=== PATIENT | female | born 1985 | race American Indian/Alaskan Native ===

== ENCOUNTER 2016-12-17 11:55 | Inpatient (IN) | payer MEDICAID, OTHER ==
[2016-12-17] MEDS ORDERED: NACL 0.9% 1000 ML 1,000 ML IV ONE ×2 (13:50→21:38)
[2016-12-17] MEDS ORDERED: TYLENOL PO ONE (13:57)
[2016-12-17 14:36] LABS: Basophils % (Auto) 0.3 % (0.0-1.8); Hemoglobin 12.8 gm/dl (10.1-14.3); Mean Corpuscular HGB Conc 32 % (30-34); Mean Corpuscular Hemoglobin 28 pg (28-32); Mean Corpuscular Volume 86 fl (79-97); Platelet Count 320 K/mm3 (140-440); Red Blood Count 4.66 M/mm3 (3.65-5.03); Red Cell Distribution Width 14.6 % (13.2-15.2); White Blood Count 12.7 K/mm3 (4.5-11.0)
[2016-12-17 14:44] LABS: INR 1.18 (0.87-1.13)
--- NOTE | 2016-12-17 14:44 | XRay Report ---
Single view chest: History: Possible sepsis. Findings: Normal cardiomediastinal silhouette. Trachea is midline. No consolidation, pneumothorax or pleural effusion. Impression: No acute cardiopulmonary findings.
[2016-12-17 14:45] LABS: Bilirubin,Urine NEG (Negative); Blood,Urine NEG (Negative); Ketones,Urine 20 mg/dL (Negative); Leukocyte Esterase,Urine NEG (Negative); Mucus,Urine 1+ /HPF; Nitrite,Urine NEG (Negative); Protein,Urine <15 mg/dL mg/dL (Negative); Urobilinogen,Urine < 2.0 mg/dL (<2.0)
[2016-12-17 14:54] LABS: Alanine Aminotransferase 29 units/L (7-56); Albumin 3.9 g/dL (3.9-5); Alkaline Phosphatase 95 units/L (35-129); Anion Gap 21 mmol/L; Bilirubin,Total 0.6 mg/dL (0.1-1.2); Blood Urea Nitrogen 10 mg/dL (7-17); Carbon Dioxide 21 mmol/L (22-30); Chloride 96.2 mmol/L (98-107); Glucose 83 mg/dL (65-100); Potassium 3.6 mmol/L (3.6-5.0); Sodium 135 mmol/L (137-145)
[2016-12-17] MEDS ORDERED: SUBLIMAZE IV ONE (16:44)
[2016-12-17] MEDS ORDERED: ZOFRAN IV ONE (16:44)
--- NOTE | 2016-12-17 16:52 | Emergency Department Report ---
HPI - General Chief Complaint: Fever Time Seen by Provider: 12/17/16 16:33 - HPI HPI: Room 10 The patient is a 31-year-old female presenting with a chief complaint of headache and fever. The patient states for the past 4 days she has "felt so bad." The patient explained she's had frontal headache, retro-orbital pain, neck pain and back pain the past 4 days. Patient states she's had a fever measured to 105F at home. Patient describes the headache as throbbing in nature and admits to photophobia in addition to nausea vomiting. The patient is 11[birth year]26[birth year]2016 states the baby is breast-fed and bottle-fed. Location: [see above] Duration: Days Quality: Throbbing Severity: 08/09 Modifying factors: [see above] Context: [see above] Mode of transportation: [not driving] ED Past Medical Hx - Past Medical History Hx Diabetes: Yes (GESTATIONAL) - Surgical History Past Surgical History?: No Additional Surgical History: C SECTIONS X 2 / 2 ACL REPAIRS - Family History Family history: no significant - Social History Smoking Status: Never Smoker Substance Use Type: None - Medications Home Medications: Home Medications Medication Instructions Recorded Confirmed Last Taken Type Motrin 600 MG tab 1 tab PO Q6H PRN 12/17/16 12/17/16 1 Day Ago History Percocet 5/325 mg 1 tab PO Q6H 12/17/16 12/17/16 1 Day Ago History ED Review of Systems ROS: Stated complaint: FEVER/ 11/26/ Other details as noted in HPI Comment: All other systems reviewed and negative Constitutional: fever Eyes: denies: eye pain, eye discharge, vision change ENT: denies: ear pain, throat pain Respiratory: denies: cough, shortness of breath, wheezing Cardiovascular: denies: chest pain, palpitations Endocrine: no symptoms reported Gastrointestinal: nausea, vomiting Musculoskeletal: back pain Skin: denies: rash, lesions Neurological: headache Psychiatric: denies: anxiety, depression Hematological/Lymphatic: denies: easy bleeding, easy bruising Physical Exam - Physical Exam Vital Signs: Vital Signs 12/17/16 12/17/16 12:11 13:58 Temperature 101.6 F H Pulse Rate 110 H Respiratory 16 20 Rate Blood Pressure 135/93 O2 Sat by Pulse 108 H Oximetry Physical Exam: GENERAL: The patient is well-developed well-nourished female lying on stretcher in darkened room not appearing to be in acute distress. [] HEENT: Normocephalic. Atraumatic. Extraocular motions are intact. Patient has moist mucous membranes. NECK: Supple. The patient complains of neck pain. There is no adenopathy noted. CHEST/LUNGS: Clear to auscultation. There is no respiratory distress noted. HEART/CARDIOVASCULAR: Regular. There is tachycardia. There is no gallop rub or murmur. ABDOMEN: Abdomen is soft, nontender. Patient has normal bowel sounds. There is no abdominal distention. SKIN: There is no rash. There is no edema. There is no diaphoresis. NEURO: The patient is awake, alert, and oriented. The patient is cooperative. The patient has no focal neurologic deficits. The patient has normal speech. Cranial nerves II through XII grossly intact, no drift MUSCULOSKELETAL: There is no evidence of acute injury. ED Course Vital Signs 12/17/16 12/17/16 12:11 13:58 Temperature 101.6 F H Pulse Rate 110 H Respiratory 16 20 Rate Blood Pressure 135/93 O2 Sat by Pulse 108 H Oximetry - Lumbar Puncture Consent Obtained: verbal consent, written consent Time Out Performed: Yes Indication for Procedure: headache, fever work up Patient Position: left lateral decubitus Skin Prep: Povidone-Iodine 1% Local Anesthetic Used: Lidocaine 1% Amount of anesthesia used (mls): 5 Spinal Needle Gauge: 20G Spinal Needle Length: 1.5in Interspace Used: L4-L5 Opening Pressure (cmH20): 0 (opening pressure attempted but secondary to poor CSF flow it was abandoned to assure CSF was obtained for analysis) Fluid Initially Obtained: clear, cloudy Complications: none Patient Tolerated Procedure: well ED Medical Decision Making - Lab Data Result diagrams: 12/17/16 14:13 12/17/16 14:13 Laboratory Tests 12/17/16 12/17/16 12/17/16 14:13 14:13 14:13 WBC 12.7 H RBC 4.66 Hgb 12.8 Hct 40.0 MCV 86 MCH 28 MCHC 32 RDW 14.6 Plt Count 320 Lymph % (Auto) 8.2 L [place] % (Auto) 5.2 Eos % (Auto) 0.0 Baso % (Auto) 0.3 Lymph # 1.0 L [place] # 0.7 Eos # 0.0 Baso # 0.0 Seg Neutrophils % 86.3 H Seg Neutrophils # 11.0 H PT 14.9 INR 1.18 H VBG pH Carbon Dioxide 21 L BUN 10 Creatinine 0.8 Estimated GFR > 60 BUN/Creatinine Ratio 12.50 Glucose 83 Lactic Acid Calcium 9.0 Total Bilirubin 0.6 AST 29 ALT 29 Alkaline Phosphatase 95 Total Protein 8.0 Albumin 3.9 Albumin/Globulin Ratio 1.0 Urine Color Urine Turbidity Urine pH Ur Specific [place] Urine Protein Urine Glucose (UA) Urine Ketones Urine Blood Urine Nitrite Urine Bilirubin Urine Urobilinogen Ur Leukocyte Esterase Urine WBC (Auto) Urine RBC (Auto) U Epithel Cells (Auto) Urine Mucus CSF Glucose CSF Total Protein 12/17/16 12/17/16 12/17/16 14:13 14:13 14:35 WBC RBC Hgb Hct MCV MCH MCHC RDW Plt Count Lymph % (Auto) [place] % (Auto) Eos % (Auto) Baso % (Auto) Lymph # [place] # Eos # Baso # Seg Neutrophils % Seg Neutrophils # PT INR VBG pH 7.399 Carbon Dioxide BUN Creatinine Estimated GFR BUN/Creatinine Ratio Glucose Lactic Acid 1.7 Calcium Total Bilirubin AST ALT Alkaline Phosphatase Total Protein Albumin Albumin/Globulin Ratio Urine Color Yellow Urine Turbidity Clear Urine pH 5.0 Ur Specific [place] 1.017 Urine Protein <15 mg/dl Urine Glucose (UA) Neg Urine Ketones 20 Urine Blood Neg Urine Nitrite Neg Urine Bilirubin Neg Urine Urobilinogen < 2.0 Ur Leukocyte Esterase Neg Urine WBC (Auto) 3.0 Urine RBC (Auto) 4.0 U Epithel Cells (Auto) 1.0 Urine Mucus 1+ CSF Glucose CSF Total Protein 12/17/16 17:49 WBC RBC Hgb Hct MCV MCH MCHC RDW Plt Count Lymph % (Auto) [place] % (Auto) Eos % (Auto) Baso % (Auto) Lymph # [place] # Eos # Baso # Seg Neutrophils % Seg Neutrophils # PT INR VBG pH Carbon Dioxide BUN Creatinine Estimated GFR BUN/Creatinine Ratio Glucose Lactic Acid Calcium Total Bilirubin AST ALT Alkaline Phosphatase Total Protein Albumin Albumin/Globulin Ratio Urine Color Urine Turbidity Urine pH Ur Specific [place] Urine Protein Urine Glucose (UA) Urine Ketones Urine Blood Urine Nitrite Urine Bilirubin Urine Urobilinogen Ur Leukocyte Esterase Urine WBC (Auto) Urine RBC (Auto) U Epithel Cells (Auto) Urine Mucus CSF Glucose 49 CSF Total Protein 69 Laboratory Tests 12/17/16 12/17/16 12/17/16 14:13 14:13 14:13 WBC 12.7 H RBC 4.66 Hgb 12.8 Hct 40.0 MCV 86 MCH 28 MCHC 32 RDW 14.6 Plt Count 320 Lymph % (Auto) 8.2 L [place] % (Auto) 5.2 Eos % (Auto) 0.0 Baso % (Auto) 0.3 Lymph # 1.0 L [place] # 0.7 Eos # 0.0 Baso # 0.0 Seg Neutrophils % 86.3 H Seg Neutrophils # 11.0 H PT 14.9 INR 1.18 H VBG pH Carbon Dioxide 21 L BUN 10 Creatinine 0.8 Estimated GFR > 60 BUN/Creatinine Ratio 12.50 Glucose 83 Lactic Acid Calcium 9.0 Total Bilirubin 0.6 AST 29 ALT 29 Alkaline Phosphatase 95 Total Protein 8.0 Albumin 3.9 Albumin/Globulin Ratio 1.0 Urine Color Urine Turbidity Urine pH Ur Specific [place] Urine Protein Urine Glucose (UA) Urine Ketones Urine Blood Urine Nitrite Urine Bilirubin Urine Urobilinogen Ur Leukocyte Esterase Urine WBC (Auto) Urine RBC (Auto) U Epithel Cells (Auto) Urine Mucus CSF Appearance CSF Color CSF WBC CSF RBC CSF Glucose CSF Total Protein 12/17/16 12/17/16 12/17/16 14:13 14:13 14:35 WBC RBC Hgb Hct MCV MCH MCHC RDW Plt Count Lymph % (Auto) [place] % (Auto) Eos % (Auto) Baso % (Auto) Lymph # [place] # Eos # Baso # Seg Neutrophils % Seg Neutrophils # PT INR VBG pH 7.399 Carbon Dioxide BUN Creatinine Estimated GFR BUN/Creatinine Ratio Glucose Lactic Acid 1.7 Calcium Total Bilirubin AST ALT Alkaline Phosphatase Total Protein Albumin Albumin/Globulin Ratio Urine Color Yellow Urine Turbidity Clear Urine pH 5.0 Ur Specific [place] 1.017 Urine Protein <15 mg/dl Urine Glucose (UA) Neg Urine Ketones 20 Urine Blood Neg Urine Nitrite Neg Urine Bilirubin Neg Urine Urobilinogen < 2.0 Ur Leukocyte Esterase Neg Urine WBC (Auto) 3.0 Urine RBC (Auto) 4.0 U Epithel Cells (Auto) 1.0 Urine Mucus 1+ CSF Appearance CSF Color CSF WBC CSF RBC CSF Glucose CSF Total Protein 12/17/16 12/17/16 17:49 17:49 WBC RBC Hgb Hct MCV MCH MCHC RDW Plt Count Lymph % (Auto) [place] % (Auto) Eos % (Auto) Baso % (Auto) Lymph # [place] # Eos # Baso # Seg Neutrophils % Seg Neutrophils # PT INR VBG pH Carbon Dioxide BUN Creatinine Estimated GFR BUN/Creatinine Ratio Glucose Lactic Acid Calcium Total Bilirubin AST ALT Alkaline Phosphatase Total Protein Albumin Albumin/Globulin Ratio Urine Color Urine Turbidity Urine pH Ur Specific [place] Urine Protein Urine Glucose (UA) Urine Ketones Urine Blood Urine Nitrite Urine Bilirubin Urine Urobilinogen Ur Leukocyte Esterase Urine WBC (Auto) Urine RBC (Auto) U Epithel Cells (Auto) Urine Mucus CSF Appearance Clear Clear CSF Color Colorless Colorless CSF WBC 186 205 CSF RBC 6 3 CSF Glucose 49 CSF Total Protein 69 Sodium 135, potassium 3.6, chloride 96.2 - Differential Diagnosis meningitis, encephalitis, intracranial abscess Critical care attestation.: If time is entered above; I have spent that time in minutes in the direct care of this critically ill patient, excluding procedure time. ED Disposition Clinical Impression: Meningitis, Acute headache, Fever Disposition: OP ADMITTED IP TO THIS HOSP Is pt being admited?: Yes Does the pt Need Aspirin: No Condition: Serious Referrals: PRIMARY CARE, [Primary Care Provider] - 3-5 Days Time of Disposition: 19:54 (hospitalist notified)
--- NOTE | 2016-12-17 17:13 | Cat Scan Report ---
FINAL REPORT PROCEDURE: CT HEAD/BRAIN WO CON TECHNIQUE: Computerized tomography of the head was performed without contrast material. HISTORY: headache, fever COMPARISON: No prior studies are available for comparison. FINDINGS: The visualized portions of the paranasal sinuses are clear. Mastoid air cells are clear. There is no calvarial fracture. There is no hydrocephalus. No acute intracranial hemorrhage or mass effect is seen. There is no evidence of acute CVA. IMPRESSION: No abnormalities are seen.
[2016-12-17] MEDS ORDERED: ROCEPHIN/NS 2 GM/100 ML 2 GM/100 ML BAG IV ONE (17:44)
[2016-12-17] MEDS ORDERED: DILAUDID IV ONE (17:44)
--- NOTE | 2016-12-17 18:18 | Admit Criteria Form ---
Admission Criteria Documentation: MENINGITIS, BACTERIAL Clinical Indications for Admission to Inpatient Care (Place 'X' for any and all applicable criteria): Admission is indicated for ANY ONE of the following (1)(2)(3)(4)(5): [X]I. Suspected or proven bacterial meningitis Extended stay beyond goal length of stay may be needed for(1)(10): [ ]a) Persistent fever [ ]b) Significant neurologic complications [ ]c) Hemodynamic instability [ ]d) Significant fluid or electrolyte imbalance [ ]e) Respiratory failure [ ]f) Disseminated intravascular coagulation [ ]g) Older patients(65 years older) The original [employer] content created by [employer] has been revised. The portions of the content which have been revised are identified through the use of italic text or in bold, and [facility] has neither reviewed nor approved the modified material. All other unmodified content is copyright [employer]. Please see references footnoted in the original [email or web address] edition 2016 Admission Criteria Met: Yes
[2016-12-17 18:52] LABS: Glucose,CSF 49 mg/dL
[2016-12-17] MEDS ORDERED: MOTRIN ONE (19:29)
[2016-12-17] MEDS ORDERED: MOTRIN PO ONE (19:31)
[2016-12-17 19:45] LABS: Appearance,CSF Clear; White Blood Cell,CSF 186 /mm3 (1-10)
[2016-12-17 19:46] LABS: White Blood Cell,CSF 205 /mm3 (1-10)
[2016-12-17 19:56] LABS: Basophils CSF 0 %
[2016-12-17 20:04] LABS: Basophils CSF 0 %; CSF Diff Status Complete
[2016-12-17 20:05] LABS: CSF Diff Status Complete
[2016-12-17] MEDS ORDERED: MILK OF MAGNESIA PO PRN (20:40)
[2016-12-17] MEDS ORDERED: DULCOLAX PR PRN (20:40)
--- NOTE | 2016-12-17 20:51 | History and Physical Report ---
History of Present Illness Date of examination: 12/17/16 Date of admission: 12/17/2016 Chief complaint: Headache fever History of present illness: Patient 31-year-old female presented with a 4 day history of headache fever associated with photophobia and nausea and vomiting. Patient symptoms were aggravated by movement and light and loud noise. No alleviating symptoms. Patient relates pain is being 10 out of 10. Unable to sleep because of pain. Nausea vomiting because of pain. Patient gives history of recent having a C- section several weeks ago and was breast-feeding. Symptoms were acute 4 days ago and she thought we'll go away however they progressed and became so severe she had to come to the ER. Upon presentation the ER patient found to be febrile. Patient's temp is going as high as 105. CT scan initially was negative. Workup for meningitis showed confirmation of meningitis with cerebrospinal fluid. At present patient Past History Past Medical History: denies: atrial fib, arrhythmia, arthritis, COPD, GERD, hepatitis, hyperthyroidism, pulmonary embolism, seizures, stroke Past Surgical History: . denies: abd. aortic aneurysm repair, valve replacement, mastectomy, total hip replacement, total knee replacement Social history: no significant social history, lives with family, full code. denies: smoking, alcohol abuse, prescription drug abuse, IV drug use Family history: no significant family history Medications and Allergies Allergies Allergy/AdvReac Type Severity Reaction Status Date / Time No Known Allergies Allergy Verified 12/17/16 12:14 Home Medications Medication Instructions Recorded Confirmed Last Taken Type Motrin 600 MG tab 1 tab PO Q6H PRN 12/17/16 12/17/16 1 Day Ago History Percocet 5/325 mg 1 tab PO Q6H 12/17/16 12/17/16 1 Day Ago History Active Meds: Active Medications Acetaminophen (Tylenol) 650 mg PO Q4H PRN PRN Reason: Pain MILD(1-3)/Fever >100.5/MATTA Review of Systems Constitutional: fever, chills, sweats, night sweats, anorexia, fatigue, weakness , malaise, no weight loss, no lethargy, no chronic headaches, no poor appetite, no daytime sleepiness, no chronic pain Eyes: left: blurred vision, bilateral: pain, irritation, photophobia Ears, nose, mouth and throat: sinus pressure, neck fullness/pressure, no ear pain, no ear discharge, no decreased hearing, no nose pain, no nasal discharge, no bleeding gums, no mouth pain, no hoarseness, no sore throat, no swelling in mouth, no post-nasal drip, no headache, no vertigo, no pain front of neck, no neck lump Cardiovascular: no chest pain, no orthopnea, no rapid/irregular heart beat, no edema, no syncope, no paroxysmal nocturnal dyspnea, no claudication, no leg edema Respiratory: no cough, no cough with sputum, no excessive sputum, no hemoptysis , no shortness of breath, no wheezing, no pleurisy, no respiratory infections, no home oxygen, no other Gastrointestinal: nausea, vomiting, no diarrhea, no BRBPR, no hematochezia, no early satiety, no heartburn, no excessive gas, no dyspepsia/bloating Genitourinary Female: no dyspareunia, no pelvic pain, no menorrhagia, no dysuria , no urgency, no stress incontinence, no post void dribbling, no vaginal itching , no vaginal discharge, no abnormal vaginal bleeding, no genital sores, no vaginal dryness, no decreased libido Rectal: no incontinence, no bleeding Musculoskeletal: no neck stiffness, no low back pain, no shooting leg pain, no hot joints, no morning stiffness, no myalgias, no atrophy, no limitation of motion, no fractures, no loss of height, no arthritis Integumentary: no redness, no sores, no jaundice, no bullae, no darkening of skin, no acne, no dryness, no change in hair/nails, no brittle nails Neurological: weakness, numbness, no transient paralysis, no paralysis, no parathesias, no tingling, no seizures, no syncope, no vertigo, no headaches, no migraines, no convulsions, no aphasia, no change in speech, no change in mentation, no confusion, no gait dysfunction, no motor disturbance, no double vision, no loss of vision, no hearing difficulties, no burning pain, no paralysis, no spasticity Psychiatric: no anxiety, no memory loss, no change in sleep habits, no insomnia , no hypersomnia, no change in libido, no anhedonia, no difficulties concentrating, no irritability Endocrine: no cold intolerance, no heat intolerance, no polyphagia, no excessive thirst, no polydipsia, no polyuria, no nocturia, no excessive sweating , no weight change, no increase in ring/shoe/hat size, no thyroid mass, no palpatations, no low blood sugars Hematologic/Lymphatic: no lymphedema, no thrombophilia Allergic/Immunologic: no urticaria Exam - Constitutional Vitals: Temp Pulse Resp BP Pulse Ox 102.4 F H 113 H 16 143/91 95 12/17/16 19:37 12/17/16 19:37 12/17/16 19:37 12/17/16 19:37 12/17/16 19:37 General appearance: Present: other (moderate distress) - EENT Eyes: Present: PERRL, EOM intact ENT: hearing intact, clear oral mucosa - Neck Neck: Present: supple, other (is supple but she does have some tenderness with attempts to check her chest with her chin) - Respiratory Respiratory effort: normal Respiratory: bilateral: CTA - Cardiovascular Heart Sounds: Present: S1 & S2. Absent: rub, click - Extremities Extremities: pulses symmetrical, No edema Peripheral Pulses: within normal limits - Abdominal General gastrointestinal: Present: soft, non-tender, non-distended, normal bowel sounds, other (post-gravid) Female genitourinary: Present: deferred - Musculoskeletal Musculoskeletal: gait normal, strength equal bilaterally - Psychiatric Psychiatric: appropriate mood/affect, intact judgment & insight - Neurologic Neurologic: CNII-XII intact, moves all extremities Results - Labs CBC & Chem 7: 12/17/16 14:13 12/17/16 14:13 Labs: Laboratory Last Values WBC 12.7 K/mm3 (4.5-11.0) H 12/17/16 14:13 RBC 4.66 M/mm3 (3.65-5.03) 12/17/16 14:13 Hgb 12.8 gm/dl (10.1-14.3) 12/17/16 14:13 Hct 40.0 % (30.3-42.9) 12/17/16 14:13 MCV 86 fl (79-97) 12/17/16 14:13 MCH 28 pg (28-32) 12/17/16 14:13 MCHC 32 % (30-34) 12/17/16 14:13 RDW 14.6 % (13.2-15.2) 12/17/16 14:13 Plt Count 320 K/mm3 (140-440) 12/17/16 14:13 Lymph % (Auto) 8.2 % (13.4-35.0) L 12/17/16 14:13 [place] % (Auto) 5.2 % (0.0-7.3) 12/17/16 14:13 Eos % (Auto) 0.0 % (0.0-4.3) 12/17/16 14:13 Baso % (Auto) 0.3 % (0.0-1.8) 12/17/16 14:13 Lymph # 1.0 K/mm3 (1.2-5.4) L 12/17/16 14:13 [place] # 0.7 K/mm3 (0.0-0.8) 12/17/16 14:13 Eos # 0.0 K/mm3 (0.0-0.4) 12/17/16 14:13 Baso # 0.0 K/mm3 (0.0-0.1) 12/17/16 14:13 Seg Neutrophils % 86.3 % (40.0-70.0) H 12/17/16 14:13 Seg Neutrophils # 11.0 K/mm3 (1.8-7.7) H 12/17/16 14:13 PT 14.9 Sec. (12.2-14.9) 12/17/16 14:13 INR 1.18 (0.87-1.13) H 12/17/16 14:13 VBG pH 7.399 (7.320-7.420) 12/17/16 14:13 Carbon Dioxide 21 mmol/L (22-30) L 12/17/16 14:13 BUN 10 mg/dL (7-17) 12/17/16 14:13 Creatinine 0.8 mg/dL (0.7-1.2) 12/17/16 14:13 Estimated GFR > 60 ml/min 12/17/16 14:13 BUN/Creatinine Ratio 12.50 % 12/17/16 14:13 Glucose 83 mg/dL (65-100) 12/17/16 14:13 Lactic Acid 1.7 mmol/L (0.7-2.0) 12/17/16 14:13 Calcium 9.0 mg/dL (8.4-10.2) 12/17/16 14:13 Total Bilirubin 0.6 mg/dL (0.1-1.2) 12/17/16 14:13 AST 29 units/L (5-40) 12/17/16 14:13 ALT 29 units/L (7-56) 12/17/16 14:13 Alkaline Phosphatase 95 units/L (35-129) 12/17/16 14:13 Total Protein 8.0 g/dL (6.3-8.2) 12/17/16 14:13 Albumin 3.9 g/dL (3.9-5) 12/17/16 14:13 Albumin/Globulin Ratio 1.0 % 12/17/16 14:13 Urine Color Yellow (Yellow) 12/17/16 14:35 Urine Turbidity Clear (Clear) 12/17/16 14:35 Urine pH 5.0 (5.0-7.0) 12/17/16 14:35 Ur Specific [place] 1.017 (1.003-1.030) 12/17/16 14:35 Urine Protein <15 mg/dl mg/dL (Negative) 12/17/16 14:35 Urine Glucose (UA) Neg mg/dL (Negative) 12/17/16 14:35 Urine Ketones 20 mg/dL (Negative) 12/17/16 14:35 Urine Blood Neg (Negative) 12/17/16 14:35 Urine Nitrite Neg (Negative) 12/17/16 14:35 Urine Bilirubin Neg (Negative) 12/17/16 14:35 Urine Urobilinogen < 2.0 mg/dL (<2.0) 12/17/16 14:35 Ur Leukocyte Esterase Neg (Negative) 12/17/16 14:35 Urine WBC (Auto) 3.0 /HPF (0.0-6.0) 12/17/16 14:35 Urine RBC (Auto) 4.0 /HPF (0.0-6.0) 12/17/16 14:35 U Epithel Cells (Auto) 1.0 /HPF (0-13.0) 12/17/16 14:35 Urine Mucus 1+ /HPF 12/17/16 14:35 CSF Appearance Clear 12/17/16 17:49 CSF Color Colorless 12/17/16 17:49 CSF WBC 186 /mm3 (1-10) 12/17/16 17:49 CSF RBC 6 /mm3 (0-0) 12/17/16 17:49 CSF Seg Neutrophils 92.7 % (0-6) 12/17/16 17:49 CSF Lymphocytes % 7.3 % (40-80) 12/17/16 17:49 CSF Reactive Lymphs 0 % 12/17/16 17:49 CSF Monocytes % 0 % (15-45) 12/17/16 17:49 CSF Eosinophils % 0 % 12/17/16 17:49 CSF Basophils 0 % 12/17/16 17:49 CSF Pathologist Review C 12/17/16 17:49 CSF Glucose 49 mg/dL 12/17/16 17:49 CSF Total Protein 69 mg/dL 12/17/16 17:49 - Imaging and Cardiology Chest x-ray: image reviewed CT Scan - head: image reviewed Assessment and Plan Advance Directives: Yes VTE prophylaxis?: Chemical Plan of care discussed with patient/family: Yes - Patient Problems (1) Acute headache Current Visit: Yes Status: Acute Qualifiers: Headache type: H Intractability: I Plan to address problem: Secondary to meningitis. (2) Fever Current Visit: Yes Status: Acute Qualifiers: Fever type: F Encounter type: initial encounter Qualified Code(s): T88.3XXA - Malignant hyperthermia due to anesthesia, initial encounter Plan to address problem: Most likely secondary to meningitis. We'll treat with Motrin and Tylenol around -the-clock. Last temp was 102. Gave 650 mg a Tylenol versus 800 mg Motrin. The patient does not tolerate by mouth we'll use rectally. (3) Meningitis Current Visit: Yes Status: Acute Plan to address problem: Patient what appears to be bacterial meningitis giving CSF fluid. Patient has 186 and 205 beats wbc's total protein is [address] negative chest x-ray unremarkable as well. Patient has significant photophobia some pain in the back of neck. Significant headache and fever. Will obtain blood cultures treat with 2 g Rocephin. For now ID consult as well. Should take CSF cultures approximately 48 hours. Titrate accordingly we will get that information. Aggressive pain control.
[2016-12-17] MEDS ORDERED: NACL 0.9% 1000 ML 1,000 ML IV SCH (21:00)
[2016-12-17] MEDS: DILAUDID IV PRN (21:26)
[2016-12-17] MEDS: ZOFRAN IV PRN (21:26)
[2016-12-17] MEDS: TYLENOL PO ONE ×2 (21:45→23:00)
[2016-12-17] MEDS: TYLENOL PO PRN (22:17)
[2016-12-17] MEDS: ROCEPHIN/NS 2 GM/100 ML 2 GM/100 ML BAG IV SCH (23:13)
[2016-12-18] MEDS: DILAUDID IV PRN ×5 (02:45→23:02)
[2016-12-18] MEDS: DUONEB 0.5 MG-3 MG/3 ML SOLN IH SCH ×4 (05:04→20:49)
[2016-12-18 06:43] LABS: Basophils % (Auto) 0.1 % (0.0-1.8); Hematocrit 38.2 % (30.3-42.9); Hemoglobin 12.2 gm/dl (10.1-14.3); Mean Corpuscular HGB Conc 32 % (30-34); Mean Corpuscular Hemoglobin 27 pg (28-32); Mean Corpuscular Volume 85 fl (79-97); Platelet Count 263 K/mm3 (140-440); Red Blood Count 4.47 M/mm3 (3.65-5.03); Red Cell Distribution Width 14.8 % (13.2-15.2); White Blood Count 11.4 K/mm3 (4.5-11.0)
[2016-12-18 07:21] LABS: Anion Gap 22 mmol/L; BUN/Creatinine Ratio 15.71; Blood Urea Nitrogen 11 mg/dL (7-17); Calcium 8.2 mg/dL (8.4-10.2); Carbon Dioxide 19 mmol/L (22-30); Chloride 99.8 mmol/L (98-107); Glucose 89 mg/dL (65-100); Potassium 3.9 mmol/L (3.6-5.0); Sodium 137 mmol/L (137-145)
[2016-12-18] MEDS: ZOFRAN IV PRN (08:27)
[2016-12-18] MEDS: TYLENOL PO PRN ×3 (09:00→20:47)
[2016-12-18] MEDS ORDERED: VANCOMYCIN VIAL IV ONE (09:42)
[2016-12-18] MEDS: LOVENOX SUB-Q SCH (09:52)
[2016-12-18] MEDS ORDERED: VANCOMYCIN PHARMACY TO DOSE IV SCH (10:00)
--- NOTE | 2016-12-18 10:27 | Progress Note ---
Assessment and Plan Assessment and plan: 1. Sepsis POA due to meningitis - will cont rocephin; add vancomycin meningitic dose; f/u c/s of CSF; glucose csf/serum ratio 0.59; elevated protein in csf; monitor WBC; spiking temperature; add toradol; no ID coverage available as per Dr. Shah as they are not taking new patients in preparation for their leaving the end of the month; droplet isolation. She was not started on IV dexamethasone with the iniation of antiobiotics on admission and at this point it s NOT recommended to be given to patients who have started antimicrobial coverage because it is unlikely to improve patient outcomes 2. Headache due to meningitis and possible spinal headache- toradol / tylenol 3. DVT prophylaxis- lovenox History Interval history: f/u Meningitis Patient seen at the bedside, present; has headache and pain in the back ; vomitted this morning Hospitalist Physical - Constitutional Vitals: Temp Pulse Resp BP Pulse Ox 103.1 F H 85 20 140/85 99 12/18/16 08:00 12/18/16 09:50 12/18/16 09:50 12/18/16 08:00 12/18/16 08:00 General appearance: Present: no acute distress, well-nourished - EENT Eyes: Present: PERRL. Absent: scleral icterus, conjunctival injection ENT: hearing intact, clear oral mucosa, no oropharyngeal erythema, no poor dentition - Neck Neck: Present: supple, normal ROM. Absent: enlarged thyroid, masses or JVD - Respiratory Respiratory effort: normal Respiratory: negative: diminished, rales, rhonchi, wheezing - Cardiovascular Rhythm: regular Heart Sounds: Present: S1 & S2. Absent: gallop - Extremities Extremities: no ischemia, pulses intact, pulses symmetrical, No edema, normal temperature - Abdominal General gastrointestinal: soft, non-tender, non-distended, normal bowel sounds - Integumentary Integumentary: Present: clear - Psychiatric Psychiatric: appropriate mood/affect, intact judgment & insight, cooperative - Neurologic Neurologic: CNII-XII intact, moves all extremities Results - Labs CBC & Chem 7: 12/18/16 06:17 12/18/16 06:17 Labs: Laboratory Last Values WBC 11.4 K/mm3 (4.5-11.0) H 12/18/16 06:17 RBC 4.47 M/mm3 (3.65-5.03) 12/18/16 06:17 Hgb 12.2 gm/dl (10.1-14.3) 12/18/16 06:17 Hct 38.2 % (30.3-42.9) 12/18/16 06:17 MCV 85 fl (79-97) 12/18/16 06:17 MCH 27 pg (28-32) L 12/18/16 06:17 MCHC 32 % (30-34) 12/18/16 06:17 RDW 14.8 % (13.2-15.2) 12/18/16 06:17 Plt Count 263 K/mm3 (140-440) 12/18/16 06:17 Lymph % (Auto) 9.2 % (13.4-35.0) L 12/18/16 06:17 [place] % (Auto) 6.2 % (0.0-7.3) 12/18/16 06:17 Eos % (Auto) 0.0 % (0.0-4.3) 12/18/16 06:17 Baso % (Auto) 0.1 % (0.0-1.8) 12/18/16 06:17 Lymph # 1.1 K/mm3 (1.2-5.4) L 12/18/16 06:17 [place] # 0.7 K/mm3 (0.0-0.8) 12/18/16 06:17 Eos # 0.0 K/mm3 (0.0-0.4) 12/18/16 06:17 Baso # 0.0 K/mm3 (0.0-0.1) 12/18/16 06:17 Seg Neutrophils % 84.5 % (40.0-70.0) H 12/18/16 06:17 Seg Neutrophils # 9.6 K/mm3 (1.8-7.7) H 12/18/16 06:17 PT 14.9 Sec. (12.2-14.9) 12/17/16 14:13 INR 1.18 (0.87-1.13) H 12/17/16 14:13 VBG pH 7.399 (7.320-7.420) 12/17/16 14:13 Sodium 137 mmol/L (137-145) 12/18/16 06:17 Potassium 3.9 mmol/L (3.6-5.0) 12/18/16 06:17 Chloride 99.8 mmol/L (98-107) 12/18/16 06:17 Carbon Dioxide 19 mmol/L (22-30) L 12/18/16 06:17 Anion Gap 22 mmol/L 12/18/16 06:17 BUN 11 mg/dL (7-17) 12/18/16 06:17 Creatinine 0.7 mg/dL (0.7-1.2) 12/18/16 06:17 Estimated GFR > 60 ml/min 12/18/16 06:17 BUN/Creatinine Ratio 15.71 % 12/18/16 06:17 Glucose 89 mg/dL (65-100) 12/18/16 06:17 Lactic Acid 0.8 mmol/L (0.7-2.0) 12/17/16 23:47 Calcium 8.2 mg/dL (8.4-10.2) L 12/18/16 06:17 Total Bilirubin 0.6 mg/dL (0.1-1.2) 12/17/16 14:13 AST 29 units/L (5-40) 12/17/16 14:13 ALT 29 units/L (7-56) 12/17/16 14:13 Alkaline Phosphatase 95 units/L (35-129) 12/17/16 14:13 Total Protein 8.0 g/dL (6.3-8.2) 12/17/16 14:13 Albumin 3.9 g/dL (3.9-5) 12/17/16 14:13 Albumin/Globulin Ratio 1.0 % 12/17/16 14:13 Urine Color Yellow (Yellow) 12/17/16 14:35 Urine Turbidity Clear (Clear) 12/17/16 14:35 Urine pH 5.0 (5.0-7.0) 12/17/16 14:35 Ur Specific [place] 1.017 (1.003-1.030) 12/17/16 14:35 Urine Protein <15 mg/dl mg/dL (Negative) 12/17/16 14:35 Urine Glucose (UA) Neg mg/dL (Negative) 12/17/16 14:35 Urine Ketones 20 mg/dL (Negative) 12/17/16 14:35 Urine Blood Neg (Negative) 12/17/16 14:35 Urine Nitrite Neg (Negative) 12/17/16 14:35 Urine Bilirubin Neg (Negative) 12/17/16 14:35 Urine Urobilinogen < 2.0 mg/dL (<2.0) 12/17/16 14:35 Ur Leukocyte Esterase Neg (Negative) 12/17/16 14:35 Urine WBC (Auto) 3.0 /HPF (0.0-6.0) 12/17/16 14:35 Urine RBC (Auto) 4.0 /HPF (0.0-6.0) 12/17/16 14:35 U Epithel Cells (Auto) 1.0 /HPF (0-13.0) 12/17/16 14:35 Urine Mucus 1+ /HPF 12/17/16 14:35 CSF Appearance Clear 12/17/16 17:49 CSF Color Colorless 12/17/16 17:49 CSF WBC 186 /mm3 (1-10) 12/17/16 17:49 CSF RBC 6 /mm3 (0-0) 12/17/16 17:49 CSF Seg Neutrophils 92.7 % (0-6) 12/17/16 17:49 CSF Lymphocytes % 7.3 % (40-80) 12/17/16 17:49 CSF Reactive Lymphs 0 % 12/17/16 17:49 CSF Monocytes % 0 % (15-45) 12/17/16 17:49 CSF Eosinophils % 0 % 12/17/16 17:49 CSF Basophils 0 % 12/17/16 17:49 CSF Pathologist Review C 12/17/16 17:49 CSF Glucose 49 mg/dL 12/17/16 17:49 CSF Total Protein 69 mg/dL 12/17/16 17:49 Microbiology 12/17/16 14:13 Peripheral/Venous Blood Culture - Preliminary Culture in Progress 12/17/16 14:13 Peripheral/Venous Blood Culture - Preliminary Culture in Progress 12/17/16 17:49 Cerebral Spinal Fluid CSF Culture - Preliminary
[2016-12-18] MEDS ORDERED: TORADOL IV PRN (10:31)
[2016-12-18] MEDS ORDERED: VANCOMYCIN VIAL 1,500 MG in NACL 0.9% 500 ML 500 ML IV ONE (11:00)
[2016-12-18] MEDS: PROTONIX PO SCH (11:25)
[2016-12-18] MEDS: NACL 0.9% 1000 ML 1,000 ML IV SCH (20:48)
[2016-12-18] MEDS: ROCEPHIN/NS 2 GM/100 ML 2 GM/100 ML BAG IV SCH (23:06)
[2016-12-19] MEDS: DUONEB 0.5 MG-3 MG/3 ML SOLN IH SCH ×4 (02:14→20:05)
[2016-12-19] MEDS: DILAUDID IV PRN ×6 (02:16→20:47)
[2016-12-19 07:09] LABS: Basophils % (Auto) 0.4 % (0.0-1.8); Hematocrit 39.1 % (30.3-42.9); Hemoglobin 12.5 gm/dl (10.1-14.3); Mean Corpuscular HGB Conc 32 % (30-34); Mean Corpuscular Hemoglobin 27 pg (28-32); Mean Corpuscular Volume 85 fl (79-97); Red Blood Count 4.57 M/mm3 (3.65-5.03); Red Cell Distribution Width 14.7 % (13.2-15.2); White Blood Count 15.6 K/mm3 (4.5-11.0)
[2016-12-19 07:25] LABS: Anion Gap 21 mmol/L; BUN/Creatinine Ratio 13.33; Blood Urea Nitrogen 8 mg/dL (7-17); Calcium 8.5 mg/dL (8.4-10.2); Carbon Dioxide 22 mmol/L (22-30); Chloride 92.4 mmol/L (98-107); Glucose 119 mg/dL (65-100); Potassium 3.3 mmol/L (3.6-5.0); Sodium 132 mmol/L (137-145)
[2016-12-19] MEDS: VANCOMYCIN VIAL 1,500 MG in NACL 0.9% 500 ML 500 ML IV SCH ×2 (09:00→22:34)
[2016-12-19] MEDS ORDERED: VANCOMYCIN VIAL 1,250 MG in NACL 0.9% 250ML 250 ML IV SCH (09:00)
[2016-12-19] MEDS: LOVENOX SUB-Q SCH (10:00)
[2016-12-19] MEDS: PROTONIX PO SCH (10:00)
[2016-12-19 10:32] LABS: Platelet Count 273 K/mm3 (140-440)
--- NOTE | 2016-12-19 11:40 | Discharge Summary ---
Providers - Providers Date of Admission: 12/17/16 20:40 Date of discharge: 12/19/16 Attending physician: DIMPLE TIPTON Primary care physician: CARPET INSPECTOR Hospitalization Reason for admission: meningitis Condition: Serious Pertinent studies: CT head- no acute abnormality CXR- no acute abn Hospital course: Miss Reveles is a 31 yo F who presented to the Er with 4 day h/o headache and fever and had LP done in the ER which was suugestive of bacterial meningitis; she wa started IV antibiotics rocephin and vancomycin; she continued to have persistent fever and headache and the decision was taken to transfer her to [facility] for further evalaution. condition at discharge-stable 32 minutes spent preparing discharge Disposition: DC/TX ANOTHER TYPE HEALTHCARE - Discharge Diagnoses (1) Acute headache Status: Acute Qualifiers: Headache type: H Intractability: I (2) Fever Status: Acute Qualifiers: Fever type: F Encounter type: initial encounter Qualified Code(s): T88.3XXA - Malignant hyperthermia due to anesthesia, initial encounter (3) Meningitis Status: Acute Core Measure Documentation - Palliative Care Palliative Care/ Comfort Measures: Not Applicable - Core Measures Any of the following diagnoses?: none Exam - Constitutional Vitals: Temp Pulse Resp BP Pulse Ox 102.3 F H 113 H 22 164/92 97 12/19/16 08:25 12/19/16 09:43 12/19/16 09:43 12/19/16 08:25 12/19/16 09:44 see exam in progress note 12/19/16 Plan Activity: advance as tolerated Diet: regular Follow up with: TARIQ LEON MD [Primary Care Provider] - 3-5 Days
--- NOTE | 2016-12-19 13:16 | Progress Note ---
Assessment and Plan Assessment and plan: 1. Sepsis POA due to meningitis - persisting temperature spikes and headaches and WBC is increasing; cotn rocephin; patient only received 1 dose of vancomcyin IV yesterday; I contacted the pharmacist, Wen, who told me that she worked on the order yesterday and she forgot to start the order; she was informed that it needed to be started BEBA- she reported that she would start it and it was agreed to give the 20mg/kg dose; I also reached out again to Dr. Shah and requested his assistance in managing this patient- he response was that at some point he would at least try to look at the chart and that if she is here tomorrow he will look at her and that he was probably not coming here today; on 12/18/16 8:38a.m when was contacted about the consult he said that they are not taking new patients in preparation for their leaving the end of the month; on 12/19/16 I contacted [facility]- 7.47 am , [facility] -7.48a.m and [facility]-7.53 a.m with the intention of transfering the patient for further care and ID and neurology evaluations ( not available here ); Dr. Shah also said that he had told the ER not to admit the patient at [facility] when he was called about this patient from ER; f/u c/s of CSF; monitor WBC; droplet isolation. She was not started on IV dexamethasone with the iniation of antiobiotics on admission and at this point it s NOT recommended to be given to patients who have started antimicrobial coverage because it is unlikely to improve patient outcomes 2. Headache due to meningitis and possible spinal headache- cotn current pain manx 3. DVT prophylaxis- lovenox [facility]- reported that they had no medical charts [facility] - agreed to accept the patient- Dr. Hurd- accepting [facility]- said that they needed to call back because they had an emergency- when they called back I told them that [facility] had accepted the patient CAse discussed with Dr. Whelan at 9:23 .am Will inform Risk management in the morning CCT time exclusive of all other billable procedures 40 minutes History Interval history: f/u Meningitis Patient seen at the bedside, present, mother present; still has headaches and fever; less confused and less tremors; no vomitting Hospitalist Physical - Constitutional Vitals: Temp Pulse Resp BP Pulse Ox 102.3 F H 113 H 22 164/92 97 12/19/16 08:25 12/19/16 09:43 12/19/16 09:43 12/19/16 08:25 12/19/16 09:44 General appearance: Present: no acute distress, other (ill looking) - EENT Eyes: Present: PERRL, EOM intact. Absent: scleral icterus, conjunctival injection ENT: hearing intact, other (neck stiffness), no clear oral mucosa (dry), no oropharyngeal erythema, no poor dentition - Neck Neck: Present: supple, normal ROM. Absent: enlarged thyroid, masses or JVD - Respiratory Respiratory effort: normal Respiratory: negative: diminished, rales, rhonchi, wheezing - Cardiovascular Rhythm: regular Heart Sounds: Present: S1 & S2. Absent: gallop - Extremities Extremities: no ischemia, pulses intact, pulses symmetrical, No edema Peripheral Pulses: within normal limits - Abdominal General gastrointestinal: soft, non-tender, non-distended, normal bowel sounds - Integumentary Integumentary: Present: clear - Psychiatric Psychiatric: appropriate mood/affect, intact judgment & insight, cooperative - Neurologic Neurologic: CNII-XII intact, moves all extremities Results - Labs CBC & Chem 7: 12/19/16 06:46 12/19/16 06:46 Labs: Laboratory Last Values WBC 15.6 K/mm3 (4.5-11.0) H 12/19/16 06:46 RBC 4.57 M/mm3 (3.65-5.03) 12/19/16 06:46 Hgb 12.5 gm/dl (10.1-14.3) 12/19/16 06:46 Hct 39.1 % (30.3-42.9) 12/19/16 06:46 MCV 85 fl (79-97) 12/19/16 06:46 MCH 27 pg (28-32) L 12/19/16 06:46 MCHC 32 % (30-34) 12/19/16 06:46 RDW 14.7 % (13.2-15.2) 12/19/16 06:46 Plt Count 273 K/mm3 (140-440) 12/19/16 06:46 Lymph % (Auto) 7.5 % (13.4-35.0) L 12/19/16 06:46 [place] % (Auto) 6.7 % (0.0-7.3) 12/19/16 06:46 Eos % (Auto) 0.0 % (0.0-4.3) 12/19/16 06:46 Baso % (Auto) 0.4 % (0.0-1.8) 12/19/16 06:46 Lymph # 1.2 K/mm3 (1.2-5.4) 12/19/16 06:46 [place] # 1.0 K/mm3 (0.0-0.8) H 12/19/16 06:46 Eos # 0.0 K/mm3 (0.0-0.4) 12/19/16 06:46 Baso # 0.1 K/mm3 (0.0-0.1) 12/19/16 06:46 Seg Neutrophils % 85.4 % (40.0-70.0) H 12/19/16 06:46 Seg Neutrophils # 13.4 K/mm3 (1.8-7.7) H 12/19/16 06:46 PT 14.9 Sec. (12.2-14.9) 12/17/16 14:13 INR 1.18 (0.87-1.13) H 12/17/16 14:13 VBG pH 7.399 (7.320-7.420) 12/17/16 14:13 Sodium 132 mmol/L (137-145) L 12/19/16 06:46 Potassium 3.3 mmol/L (3.6-5.0) L 12/19/16 06:46 Chloride 92.4 mmol/L (98-107) L 12/19/16 06:46 Carbon Dioxide 22 mmol/L (22-30) 12/19/16 06:46 Anion Gap 21 mmol/L 12/19/16 06:46 BUN 8 mg/dL (7-17) 12/19/16 06:46 Creatinine 0.6 mg/dL (0.7-1.2) L 12/19/16 06:46 Estimated GFR > 60 ml/min 12/19/16 06:46 BUN/Creatinine Ratio 13.33 % 12/19/16 06:46 Glucose 119 mg/dL (65-100) H 12/19/16 06:46 Lactic Acid 0.8 mmol/L (0.7-2.0) 12/17/16 23:47 Calcium 8.5 mg/dL (8.4-10.2) 12/19/16 06:46 Total Bilirubin 0.6 mg/dL (0.1-1.2) 12/17/16 14:13 AST 29 units/L (5-40) 12/17/16 14:13 ALT 29 units/L (7-56) 12/17/16 14:13 Alkaline Phosphatase 95 units/L (35-129) 12/17/16 14:13 Total Protein 8.0 g/dL (6.3-8.2) 12/17/16 14:13 Albumin 3.9 g/dL (3.9-5) 12/17/16 14:13 Albumin/Globulin Ratio 1.0 % 12/17/16 14:13 Urine Color Yellow (Yellow) 12/17/16 14:35 Urine Turbidity Clear (Clear) 12/17/16 14:35 Urine pH 5.0 (5.0-7.0) 12/17/16 14:35 Ur Specific [place] 1.017 (1.003-1.030) 12/17/16 14:35 Urine Protein <15 mg/dl mg/dL (Negative) 12/17/16 14:35 Urine Glucose (UA) Neg mg/dL (Negative) 12/17/16 14:35 Urine Ketones 20 mg/dL (Negative) 12/17/16 14:35 Urine Blood Neg (Negative) 12/17/16 14:35 Urine Nitrite Neg (Negative) 12/17/16 14:35 Urine Bilirubin Neg (Negative) 12/17/16 14:35 Urine Urobilinogen < 2.0 mg/dL (<2.0) 12/17/16 14:35 Ur Leukocyte Esterase Neg (Negative) 12/17/16 14:35 Urine WBC (Auto) 3.0 /HPF (0.0-6.0) 12/17/16 14:35 Urine RBC (Auto) 4.0 /HPF (0.0-6.0) 12/17/16 14:35 U Epithel Cells (Auto) 1.0 /HPF (0-13.0) 12/17/16 14:35 Urine Mucus 1+ /HPF 12/17/16 14:35 CSF Appearance Clear 12/17/16 17:49 CSF Color Colorless 12/17/16 17:49 CSF WBC 186 /mm3 (1-10) 12/17/16 17:49 CSF RBC 6 /mm3 (0-0) 12/17/16 17:49 CSF Seg Neutrophils 92.7 % (0-6) 12/17/16 17:49 CSF Lymphocytes % 7.3 % (40-80) 12/17/16 17:49 CSF Reactive Lymphs 0 % 12/17/16 17:49 CSF Monocytes % 0 % (15-45) 12/17/16 17:49 CSF Eosinophils % 0 % 12/17/16 17:49 CSF Basophils 0 % 12/17/16 17:49 CSF Pathologist Review C 12/17/16 17:49 CSF Glucose 49 mg/dL 12/17/16 17:49 CSF Total Protein 69 mg/dL 12/17/16 17:49 Microbiology 12/17/16 17:49 Cerebral Spinal Fluid CSF Culture - Preliminary 12/17/16 Unknown Urine,Clean Catch Urine Culture - Preliminary NO GROWTH AFTER 24 HOURS 12/17/16 14:13 Peripheral/Venous Blood Culture - Preliminary NO GROWTH AFTER 24 HOURS 12/17/16 14:13 Peripheral/Venous Blood Culture - Preliminary NO GROWTH AFTER 24 HOURS
[2016-12-19] MEDS ORDERED: ATIVAN IV PRN (16:22)
[2016-12-19] MEDS: NACL 0.9% 1000 ML 1,000 ML IV SCH (17:11)
[2016-12-19] MEDS: TYLENOL PO PRN (20:55)
[2016-12-19] MEDS: ZOVIRAX 800 MG in NACL 0.9% 100 ML IV SCH (21:56)
[2016-12-20] MEDS: ROCEPHIN/NS 2 GM/100 ML 2 GM/100 ML BAG IV SCH (00:31)
[2016-12-20] MEDS: DUONEB 0.5 MG-3 MG/3 ML SOLN IH SCH ×4 (02:17→19:52)
[2016-12-20] MEDS: ZOVIRAX 800 MG in NACL 0.9% 100 ML IV SCH ×3 (04:26→20:56)
[2016-12-20] MEDS: DILAUDID IV PRN ×4 (04:33→20:53)
--- NOTE | 2016-12-20 10:04 | Consultation ---
History of Present Illness Consult date: 12/20/16 Requesting physician: DIMPLE TIPTON Reason for Consult: meningitis Chief complaint: headache History of present illness: 31 YO F recent delivery approx 3 weeks ago who p/w headache that gradually began on 12/14. Sx have been constant waxing and waning but worsening since onset. There were no clear aggravating, relieving, or temporal factors. Severity is such to cause photophobia w/ assoc neck pain/stiffness causing difficultly sleeping. LP in ED suggestive of meningitis. Past History Past Medical History: denies: atrial fib, arrhythmia, arthritis, COPD, GERD, hepatitis, hyperthyroidism, pulmonary embolism, seizures, stroke Past Surgical History: . denies: abd. aortic aneurysm repair, valve replacement, mastectomy, total hip replacement, total knee replacement Social history: no significant social history, lives with family, full code. denies: smoking, alcohol abuse, prescription drug abuse, IV drug use Family history: no significant family history Medications and Allergies Allergies Allergy/AdvReac Type Severity Reaction Status Date / Time No Known Allergies Allergy Verified 12/17/16 12:14 Home Medications Medication Instructions Recorded Confirmed Last Taken Type Motrin 600 MG tab 1 tab PO Q6H PRN 12/17/16 12/17/16 1 Day Ago History Percocet 5/325 mg 1 tab PO Q6H 12/17/16 12/17/16 1 Day Ago History Active Meds: Active Medications Acetaminophen (Tylenol) 650 mg PO Q4H PRN PRN Reason: Pain MILD(1-3)/Fever >100.5/MATTA Last Admin: 12/19/16 20:55 Dose: 650 mg Albuterol/Ipratropium (Duoneb 0.5 Mg-3 Mg/3 Ml Soln) 1 ampul IH Q6HRT [facility] Last Admin: 12/20/16 09:43 Dose: Not Given Bisacodyl (Dulcolax) 10 mg PA QDAY PRN PRN Reason: Constipation unrelieved by MOM Enoxaparin Sodium (Lovenox) 40 mg SUB-Q QDAY [facility] Last Admin: 12/19/16 10:00 Dose: 40 mg Hydromorphone HCl (Dilaudid) 1 mg IV Q3H PRN PRN Reason: Pain, Moderate (4-6) Last Admin: 12/20/16 04:33 Dose: 1 mg Ceftriaxone Sodium (Rocephin/Ns 2 Gm/100 Ml) 2 gm in 100 mls @ 200 mls/hr IV Q24H [facility] PRN Reason: Protocol Last Admin: 12/20/16 00:31 Dose: 200 mls/hr Sodium Chloride (Nacl 0.9% 1000 Ml) 1,000 mls @ 50 mls/hr IV DIRECT [facility] Last Admin: 12/19/16 17:11 Dose: 50 mls/hr Vancomycin HCl 1,500 mg/ (Sodium Chloride) 500 mls @ 333.333 mls/hr IV Q12H [facility] Last Admin: 12/19/16 22:34 Dose: 333.333 mls/hr Acyclovir 800 mg/ Sodium (Chloride) 116 mls @ 100 mls/hr IV Q8H [facility] PRN Reason: Protocol Last Admin: 12/20/16 04:26 Dose: 100 mls/hr Ketorolac Tromethamine (Toradol) 30 mg IV Q6H PRN PRN Reason: Pain, Moderate (4-6) Stop: 12/23/16 10:30 Last Admin: 12/20/16 00:30 Dose: 30 mg Lorazepam (Ativan) 1 mg IV Q4H PRN PRN Reason: agitation or seizure Last Admin: 12/20/16 04:32 Dose: 1 mg Magnesium Hydroxide (Milk Of Magnesia) 30 ml PO Q4H PRN PRN Reason: Constipation Ondansetron HCl (Zofran) 4 mg IV Q8H PRN PRN Reason: N/V unrelieved by Reglan Last Admin: 12/18/16 08:27 Dose: 4 mg Oxycodone/Acetaminophen (Percocet 5/325) 1 tab PO Q4H PRN PRN Reason: Pain, Moderate (4-6) Pantoprazole Sodium (Protonix) 40 mg PO QDAY [facility] Last Admin: 12/19/16 10:00 Dose: 40 mg Vancomycin HCl (Vancomycin Pharmacy To Dose) 1 each IV PKCONSULT [facility] PRN Reason: Protocol Review of Systems All systems: negative Constitutional: fever, chills, fatigue, weakness, malaise, lethargy Neurological: headaches Physical Examination - Vital Signs Vital Signs: Vital Signs Temp Pulse Resp BP Pulse Ox 101.6 F H 110 H 16 135/93 108 H 12/17/16 12:11 12/17/16 12:11 12/17/16 12:11 12/17/16 12:11 12/17/16 12:11 - Constitutional General appearance: uncomfortable - EENT EENT: Present: ATNC, PERRL, mucous membranes moist, hearing intact, vision intact - Respiratory Respiratory: Present: chest non-tender, lungs clear, no respiratory distress - Cardiovascular Cardiovascular: Present: regular rate Extremities: Present: no peripheral edema bilatateraly, no clubbing, cyanosis, no inflammation, no ischemia or petechiae - Gastrointestinal Gastrointestinal: Present: normoactive bowel sounds, non-distended - Integumentary Integumentary: Present: normal - Neurologic Cranial nerve examination: PERRL, EOMI, VFF, V1/V2/V3 grossly intact, face symmetric, tongue midline, intact, intact shoulder shrug, intact cough reflex, Intact Vestibulo-ocular r, intact corneal reflex, normal palatal elevation Speech examination: intact Sensorimotor examination: intact Detailed motor examination: full strength in all candido Motor examination - right side: 5/5: biceps, triceps, wrist flexion, wrist extension, watch parts inspector, hip flexors, knee extensors, dorsiflexion, toe extension (EHL) , plantarflexion Motor examination - left side: 5/5: biceps, triceps, wrist flexion, wrist extension, watch parts inspector, hip flexors, knee extensors, dorsiflexion, toe extension (EHL) , plantarflexion Detailed sensory examination: intact, light touch, two-point discrimination, pain, temperature Reflexes: 2+: ankle, bicep, knee, tricep - Musculoskeletal Musculoskeletal: Present: no fluid collection, no pain, other (neck stiffness evident) - Psychiatric Psychiatric: Present: mood/affect appropriate, cooperative Results - Laboratory Findings CBC and BMP: 12/19/16 06:46 12/19/16 06:46 Abnormal Lab Findings: Abnormal Labs 12/18/16 12/18/16 12/19/16 06:17 06:17 06:46 WBC 11.4 H 15.6 H MCH 27 L 27 L Lymph % (Auto) 9.2 L 7.5 L Lymph # 1.1 L [place] # 1.0 H Seg Neutrophils % 84.5 H 85.4 H Seg Neutrophils # 9.6 H 13.4 H Sodium Potassium Chloride Carbon Dioxide 19 L Creatinine Glucose POC Glucose Calcium 8.2 L 12/19/16 12/19/16 06:46 16:08 WBC MCH Lymph % (Auto) Lymph # [place] # Seg Neutrophils % Seg Neutrophils # Sodium 132 L Potassium 3.3 L Chloride 92.4 L Carbon Dioxide Creatinine 0.6 L Glucose 119 H POC Glucose 123 H Calcium - Diagnostic Findings Additional findings: CTH neg Assessment and Plan 31 YO F p/w 1 week of crescendo MATTA w/ meningeal sx and neck stiffness on exam. CTH neg. CSF WBC 205 L93% Glucose 49 and Protein 69. Clinical syn suggestive of infectious meningitis-? viral vs. bacterial. 1. Agree with ID consult and Broad spectrum antimicrobials in the interim including Acyclovir 10 mg/kg IV Q8hrs 2. CSF HSV 1/2 PCRs 3. [place]: NSAIDS PO/IV prn e.g. Motrin 400-800 mg PO Q3-6hrs prn, Toradol 15 -30mg IV Q4-6hrs prn, Naprosyn 250-500mg PO Q4-6hrs prn 4. We will follow up
[2016-12-20 10:57] LABS: HIV-1 Antigen p24 Non React (Non React); HIVR-1/2 Ab Non React (Non React)
--- NOTE | 2016-12-20 10:59 | Progress Note ---
Assessment and Plan Assessment and plan: 1. Sepsis POA due to meningitis - viral vs bacterial-continued to have temp spikes overnight with Tmax 102.3 but temp seems to be trending this morning with some clinical improvement in headache and neck stiffness; cotn IV vancomyicn/ rocephin / acyclovir; droplet isolation. She was not started on IV dexamethasone with the iniation of antiobiotics on admission and at this point it s NOT recommended to be given to patients who have started antimicrobial coverage because it is unlikely to improve patient outcomes; d/tue case with Dr. Goodwin (ID) and he recommended repeat blood c/s; MRI brain to eval for any masses of infectious process; we aslo discussed the possibility of listeria monocytogenes given the fact that she is about 3 weeks post - - she has had no abdominal pain or diarrhea prior to her admission or since admission so this may be less likely; f/u EEG; cont po NSAID with ibuprofen ; d /c toradol; consult from neurology today noted and appreciated; CSF -HSV 1/2 PCR ordered as a send out to [facility] ( miscellaneous order)- f/u result 2. Headache due to meningitis and possible spinal headache- improving; cotn current manx 3. DVT prophylaxis- lovenox patient was accepted at [facility] - but no bed has been available; may decide to her in view of signs of improvement and ID availability and neurology input Patient and updated at the bedside and plan of care discussed; all questions have been answered History Interval history: f/u Meningitis Patient seen at the bedside, present, headaches are better and is still stiff but not as bad; fever seems to be improving; no problem with hearing; does complain of blurred vision and seeing doubles Hospitalist Physical - Constitutional Vitals: Temp Pulse Resp BP Pulse Ox 99.2 F 106 H 20 151/88 98 12/20/16 08:45 12/20/16 08:45 12/20/16 08:45 12/20/16 08:45 12/20/16 08:45 General appearance: Present: no acute distress, other (ill looking but appears better than yesterday ) - EENT Eyes: Present: PERRL, EOM intact - Neck Neck: Present: rigidity (mild stiffness- but better) - Respiratory Respiratory effort: normal Respiratory: negative: diminished, rales, rhonchi, wheezing - Cardiovascular Rhythm: regular Heart Sounds: Present: S1 & S2. Absent: gallop - Extremities Extremities: no ischemia, pulses intact, pulses symmetrical, No edema Peripheral Pulses: within normal limits - Abdominal General gastrointestinal: soft, non-tender, non-distended, normal bowel sounds - Integumentary Integumentary: Present: clear - Psychiatric Psychiatric: appropriate mood/affect, intact judgment & insight - Neurologic Neurologic: CNII-XII intact, moves all extremities, other (no abn detected on eye movement; no impairment- able to identify color and number of fingers correctly without dipolpia on individual eye testing) Results - Labs CBC & Chem 7: 12/19/16 06:46 12/19/16 06:46 Labs: Laboratory Last Values WBC 15.6 K/mm3 (4.5-11.0) H 12/19/16 06:46 RBC 4.57 M/mm3 (3.65-5.03) 12/19/16 06:46 Hgb 12.5 gm/dl (10.1-14.3) 12/19/16 06:46 Hct 39.1 % (30.3-42.9) 12/19/16 06:46 MCV 85 fl (79-97) 12/19/16 06:46 MCH 27 pg (28-32) L 12/19/16 06:46 MCHC 32 % (30-34) 12/19/16 06:46 RDW 14.7 % (13.2-15.2) 12/19/16 06:46 Plt Count 273 K/mm3 (140-440) 12/19/16 06:46 Lymph % (Auto) 7.5 % (13.4-35.0) L 12/19/16 06:46 [place] % (Auto) 6.7 % (0.0-7.3) 12/19/16 06:46 Eos % (Auto) 0.0 % (0.0-4.3) 12/19/16 06:46 Baso % (Auto) 0.4 % (0.0-1.8) 12/19/16 06:46 Lymph # 1.2 K/mm3 (1.2-5.4) 12/19/16 06:46 [place] # 1.0 K/mm3 (0.0-0.8) H 12/19/16 06:46 Eos # 0.0 K/mm3 (0.0-0.4) 12/19/16 06:46 Baso # 0.1 K/mm3 (0.0-0.1) 12/19/16 06:46 Seg Neutrophils % 85.4 % (40.0-70.0) H 12/19/16 06:46 Seg Neutrophils # 13.4 K/mm3 (1.8-7.7) H 12/19/16 06:46 PT 14.9 Sec. (12.2-14.9) 12/17/16 14:13 INR 1.18 (0.87-1.13) H 12/17/16 14:13 VBG pH 7.399 (7.320-7.420) 12/17/16 14:13 Sodium 132 mmol/L (137-145) L 12/19/16 06:46 Potassium 3.3 mmol/L (3.6-5.0) L 12/19/16 06:46 Chloride 92.4 mmol/L (98-107) L 12/19/16 06:46 Carbon Dioxide 22 mmol/L (22-30) 12/19/16 06:46 Anion Gap 21 mmol/L 12/19/16 06:46 BUN 8 mg/dL (7-17) 12/19/16 06:46 Creatinine 0.6 mg/dL (0.7-1.2) L 12/19/16 06:46 Estimated GFR > 60 ml/min 12/19/16 06:46 BUN/Creatinine Ratio 13.33 % 12/19/16 06:46 Glucose 119 mg/dL (65-100) H 12/19/16 06:46 POC Glucose 123 (70-105) H 12/19/16 16:08 Lactic Acid 0.8 mmol/L (0.7-2.0) 12/17/16 23:47 Calcium 8.5 mg/dL (8.4-10.2) 12/19/16 06:46 Total Bilirubin 0.6 mg/dL (0.1-1.2) 12/17/16 14:13 AST 29 units/L (5-40) 12/17/16 14:13 ALT 29 units/L (7-56) 12/17/16 14:13 Alkaline Phosphatase 95 units/L (35-129) 12/17/16 14:13 Total Protein 8.0 g/dL (6.3-8.2) 12/17/16 14:13 Albumin 3.9 g/dL (3.9-5) 12/17/16 14:13 Albumin/Globulin Ratio 1.0 % 12/17/16 14:13 Urine Color Yellow (Yellow) 12/17/16 14:35 Urine Turbidity Clear (Clear) 12/17/16 14:35 Urine pH 5.0 (5.0-7.0) 12/17/16 14:35 Ur Specific [place] 1.017 (1.003-1.030) 12/17/16 14:35 Urine Protein <15 mg/dl mg/dL (Negative) 12/17/16 14:35 Urine Glucose (UA) Neg mg/dL (Negative) 12/17/16 14:35 Urine Ketones 20 mg/dL (Negative) 12/17/16 14:35 Urine Blood Neg (Negative) 12/17/16 14:35 Urine Nitrite Neg (Negative) 12/17/16 14:35 Urine Bilirubin Neg (Negative) 12/17/16 14:35 Urine Urobilinogen < 2.0 mg/dL (<2.0) 12/17/16 14:35 Ur Leukocyte Esterase Neg (Negative) 12/17/16 14:35 Urine WBC (Auto) 3.0 /HPF (0.0-6.0) 12/17/16 14:35 Urine RBC (Auto) 4.0 /HPF (0.0-6.0) 12/17/16 14:35 U Epithel Cells (Auto) 1.0 /HPF (0-13.0) 12/17/16 14:35 Urine Mucus 1+ /HPF 12/17/16 14:35 CSF Appearance Clear 12/17/16 17:49 CSF Color Colorless 12/17/16 17:49 CSF WBC 186 /mm3 (1-10) 12/17/16 17:49 CSF RBC 6 /mm3 (0-0) 12/17/16 17:49 CSF Seg Neutrophils 92.7 % (0-6) 12/17/16 17:49 CSF Lymphocytes % 7.3 % (40-80) 12/17/16 17:49 CSF Reactive Lymphs 0 % 12/17/16 17:49 CSF Monocytes % 0 % (15-45) 12/17/16 17:49 CSF Eosinophils % 0 % 12/17/16 17:49 CSF Basophils 0 % 12/17/16 17:49 CSF Pathologist Review C 12/17/16 17:49 CSF Glucose 49 mg/dL 12/17/16 17:49 CSF Total Protein 69 mg/dL 12/17/16 17:49 Microbiology 12/17/16 14:13 Peripheral/Venous Blood Culture - Preliminary NO GROWTH AFTER 48 HOURS 12/17/16 14:13 Peripheral/Venous Blood Culture - Preliminary NO GROWTH AFTER 48 HOURS 12/17/16 17:49 Cerebral Spinal Fluid CSF Culture - Preliminary 12/17/16 Unknown Urine,Clean Catch Urine Culture - Preliminary NO GROWTH AFTER 24 HOURS
[2016-12-20] MEDS: LOVENOX SUB-Q SCH (12:20)
[2016-12-20] MEDS: VANCOMYCIN VIAL 1,500 MG in NACL 0.9% 500 ML 500 ML IV SCH (12:20)
[2016-12-20] MEDS: PROTONIX PO SCH (12:21)
--- NOTE | 2016-12-20 13:01 | Magnetic Resonance Report ---
MRI BRAIN WITHOUT CONTRAST INDICATION: Altered mental status. Evaluate for mass. COMPARISON: 12/17/[address] FINDINGS: Noncontrast multiplanar and multisequence MRI of the brain demonstrates normal ventricles and sulci without acute hemorrhage, mass effect or midline shift. Approximately 1.1 x 0.8 cm restricted diffusion in the splenium of the corpus callosum with additional similar subtle involvement along its body/trunk as on axial image 23, series 5 as well, noted dark on the ADC. Another 5 mm restricted diffusion focus suspected in the left cerebellum anteriorly, axial series 5, image 12. No abnormal extra-axial masses or fluid collections. Normal major intracranial vascular flow voids. Normal posterior fossa structures with symmetric seventh and eighth nerve complexes. Symmetric, grossly unremarkable eye globes. Mild nasal septal deviation. Slight left frontoethmoid mucosal thickening. Clear remainder paranasal sinuses and mastoid air cells. Midline structures including the pituitary, optic chiasm, corpus callosum and cervicomedullary junction appear within normal limits without evidence of Chiari malformation. CONCLUSION: 1. Abnormal restricted diffusion signal involving the splenium and body of the corpus callosum and also another small suspected focus in the left cerebellum anterolaterally, as described. Various possibilities on this unenhanced exam include acute ischemia versus demyelination or even neoplastic, including lymphoma, amongst others. Contrast-enhancement may also be further helpful in characterizing for occult masses, if warranted. 2. Few other incidental findings, as above. Thank you for the opportunity to participate in this patient's care.
[2016-12-20] MEDS ORDERED: PROVENTIL IH PRN (14:41)
[2016-12-20] MEDS: NACL 0.9% 1000 ML 1,000 ML IV SCH (19:24)
--- NOTE | 2016-12-20 19:47 | Consultation ---
History of Present Illness - Reason for Consult Consult date: 12/20/16 MENINGITIS Requesting physician: DIMPLE TIPTON - History of Present Illness Patient is 31 yo female with no past medical history who presented with a four day history of fever, headache, nausea and vomitting. Patient says headache is worsened by movement. She was admitted with a diagnosis of meningitis. She was started on vancomycin and ceftriaxone. However, she continues to have fever hence infectious disease consult. Initial ct head did not reveal any abnormality. Systemic review is not contributory. PMH - Non VITAL SIGNS Temp 101.1. Diagnosis Meningitis likely viral. Recommendations 1. Add acyclovir 800mg iv every 8hrly. 2. Repeat blood culture 3. MRI head r/o lesions 4. Will consider d/c ceftriaxone and start ampicillin if fever persists. Past History Past Medical History: denies: atrial fib, arrhythmia, arthritis, COPD, GERD, hepatitis, hyperthyroidism, pulmonary embolism, seizures, stroke Past Surgical History: . denies: abd. aortic aneurysm repair, valve replacement, mastectomy, total hip replacement, total knee replacement Social history: no significant social history, lives with family, full code. denies: smoking, alcohol abuse, prescription drug abuse, IV drug use Family history: no significant family history Medications and Allergies Allergies Allergy/AdvReac Type Severity Reaction Status Date / Time No Known Allergies Allergy Verified 12/17/16 12:14 Home Medications Medication Instructions Recorded Confirmed Last Taken Type Motrin 600 MG tab 1 tab PO Q6H PRN 12/17/16 12/17/16 1 Day Ago History Percocet 5/325 mg 1 tab PO Q6H 12/17/16 12/17/16 1 Day Ago History Active Meds: Active Medications Acetaminophen (Tylenol) 650 mg PO Q4H PRN PRN Reason: Pain MILD(1-3)/Fever >100.5/MATTA Last Admin: 12/19/16 20:55 Dose: 650 mg Albuterol (Proventil) 2.5 mg IH Q4HRT PRN PRN Reason: Shortness Of Breath Albuterol/Ipratropium (Duoneb 0.5 Mg-3 Mg/3 Ml Soln) 1 ampul IH TIDRT [facility]EL[facility] Bisacodyl (Dulcolax) 10 mg MO QDAY PRN PRN Reason: Constipation unrelieved by MOM Enoxaparin Sodium (Lovenox) 40 mg SUB-Q QDAY [facility] Last Admin: 12/20/16 12:20 Dose: 40 mg Hydromorphone HCl (Dilaudid) 1 mg IV Q3H PRN PRN Reason: Pain, Moderate (4-6) Last Admin: 12/20/16 15:57 Dose: 1 mg Ceftriaxone Sodium (Rocephin/Ns 2 Gm/100 Ml) 2 gm in 100 mls @ 200 mls/hr IV Q24H [facility] PRN Reason: Protocol Last Admin: 12/20/16 00:31 Dose: 200 mls/hr Sodium Chloride (Nacl 0.9% 1000 Ml) 1,000 mls @ 50 mls/hr IV DIRECT [facility] Last Admin: 12/20/16 19:24 Dose: 50 mls/hr Vancomycin HCl 1,500 mg/ (Sodium Chloride) 500 mls @ 333.333 mls/hr IV Q12H [facility] Last Admin: 12/20/16 12:20 Dose: 333.333 mls/hr Acyclovir 800 mg/ Sodium (Chloride) 116 mls @ 100 mls/hr IV Q8H [facility] PRN Reason: Protocol Last Admin: 12/20/16 13:00 Dose: 100 mls/hr Ketorolac Tromethamine (Toradol) 30 mg IV Q6H PRN PRN Reason: Pain, Moderate (4-6) Stop: 12/23/16 10:30 Last Admin: 12/20/16 00:30 Dose: 30 mg Lorazepam (Ativan) 1 mg IV Q4H PRN PRN Reason: agitation or seizure Last Admin: 12/20/16 04:32 Dose: 1 mg Magnesium Hydroxide (Milk Of Magnesia) 30 ml PO Q4H PRN PRN Reason: Constipation Ondansetron HCl (Zofran) 4 mg IV Q8H PRN PRN Reason: N/V unrelieved by Reglan Last Admin: 12/18/16 08:27 Dose: 4 mg Oxycodone/Acetaminophen (Percocet 5/325) 1 tab PO Q4H PRN PRN Reason: Pain, Moderate (4-6) Pantoprazole Sodium (Protonix) 40 mg PO QDAY [facility] Last Admin: 12/20/16 12:21 Dose: 40 mg Vancomycin HCl (Vancomycin Pharmacy To Dose) 1 each IV PKCONSULT KELVIN PRN Reason: Protocol Physical Examination - Constitutional Vitals: Vital Signs Temp Pulse Resp BP Pulse Ox 101.1 F H 120 H 20 119/78 98 12/20/16 16:15 12/20/16 16:15 12/20/16 16:15 12/20/16 16:15 12/20/16 14:40 Temperature -Last 24 Hours Temperature 101.1 F Temperature 99.2 F Temperature 102.3 F Results - Labs CBC & Chem 7: 12/19/16 06:46 12/19/16 06:46
[2016-12-20] MEDS: TYLENOL PO PRN (21:14)
[2016-12-21] MEDS: DILAUDID IV PRN ×5 (01:09→21:39)
[2016-12-21] MEDS: VANCOMYCIN VIAL 1,500 MG in NACL 0.9% 500 ML 500 ML IV SCH ×2 (01:11→09:17)
[2016-12-21] MEDS: ZOFRAN IV PRN (01:20)
[2016-12-21] MEDS: ROCEPHIN/NS 2 GM/100 ML 2 GM/100 ML BAG IV SCH ×2 (03:44→17:04)
[2016-12-21] MEDS: PERCOCET 5/325 PO PRN ×3 (03:45→18:46)
[2016-12-21] MEDS: ZOVIRAX 800 MG in NACL 0.9% 100 ML IV SCH ×3 (04:39→22:07)
[2016-12-21 06:36] LABS: Basophils % (Auto) 0.3 % (0.0-1.8); Eosinophils % (Auto) 0.2 % (0.0-4.3); Hematocrit 35.3 % (30.3-42.9); Hemoglobin 11.5 gm/dl (10.1-14.3); Mean Corpuscular HGB Conc 33 % (30-34); Mean Corpuscular Hemoglobin 27 pg (28-32); Mean Corpuscular Volume 84 fl (79-97); Platelet Count 276 K/mm3 (140-440); Red Blood Count 4.21 M/mm3 (3.65-5.03); Red Cell Distribution Width 14.5 % (13.2-15.2); White Blood Count 9.4 K/mm3 (4.5-11.0)
[2016-12-21 06:48] LABS: Anion Gap 17 mmol/L; BUN/Creatinine Ratio 7.14; Blood Urea Nitrogen 5 mg/dL (7-17); Carbon Dioxide 27 mmol/L (22-30); Chloride 96.3 mmol/L (98-107); Glucose 89 mg/dL (65-100); Potassium 3.1 mmol/L (3.6-5.0); Sodium 137 mmol/L (137-145)
[2016-12-21] MEDS: DUONEB 0.5 MG-3 MG/3 ML SOLN IH SCH ×3 (08:32→20:17)
[2016-12-21] MEDS: LOVENOX SUB-Q SCH (09:14)
[2016-12-21] MEDS: PROTONIX PO SCH (09:16)
--- NOTE | 2016-12-21 09:58 | Electroencephalogram Report ---
Electroencephalogram EEG Date of exam: 12/20/16 History: 31 YO F Hx meningitis Impression: Normal awake and drowsy 20 minute routine EEG. There are no findings to suggest neuronal dysfunction, cortical irritability, epileptiform abnormalities or seizures. Description: The waking background shows an appropriate organization with well-defined anterior posterior voltage and frequency gradients. Posteriorly, there is a well -developed alpha rhythm of 9-10 Hz which is symmetrical and bilaterally reactive. Anteriorly, there is a pattern of lower voltage and slightly irregular theta and beta range frequencies. During drowsiness, there is attenuation of the background rhythms. Throughout, the recording there are no epileptiform abnormalities, focal or lateralizing features, or significant interhemispheric findings. Interpretation: This is a digitally acquired 21-channel electroencephalogram. Both bipolar and referential montages were used in interpretation. Electrodes were placed in accordance with the International 10-20 system.
--- NOTE | 2016-12-21 10:04 | Progress Note ---
Assessment and Plan 31 YO F p/w 1 week of crescendo MATTA w/ meningeal sx and neck stiffness on exam. CTH neg. CSF WBC 205 L93% Glucose 49 and Protein 69. Clinical syn suggestive of infectious meningitis-? viral vs. bacterial. EEG normal. MRI Brain report of restricted diffusion in splenium with unclear clinical significance, likely secondary to meningitis. 1. Agree with ID consult and Broad spectrum antimicrobials in the interim including Acyclovir 10 mg/kg IV Q8hrs 2. Will obtain MRI Brain + Pete sequences 3. CSF HSV 1/2 PCRs 4. [place]: NSAIDS PO/IV prn e.g. Motrin 400-800 mg PO Q3-6hrs prn, Toradol 15 -30mg IV Q4-6hrs prn, Naprosyn 250-500mg PO Q4-6hrs prn 5. We will follow up Subjective Date of service: 12/21/16 Principal diagnosis: meningitis Interval history: MATTA persists waxing and waning -08/09 Objective - Vital Sign Vital Signs - 12hr 12/21/16 12/21/16 12/21/16 00:00 01:09 03:45 Temperature 101.1 F H Pulse Rate [ Anterior Bilateral Throughout] Pulse Rate [ 118 H Left Radial] Pulse Rate [ Throughout] Respiratory 22 22 20 Rate Respiratory Rate [Anterior Bilateral Throughout] Respiratory Rate [ Throughout] Blood Pressure 116/80 [Left Arm] O2 Sat by Pulse 97 Oximetry 12/21/16 12/21/16 12/21/16 06:30 07:40 08:34 Temperature 98.4 F Pulse Rate [ 89 Anterior Bilateral Throughout] Pulse Rate [ 94 H Left Radial] Pulse Rate [ 89 Throughout] Respiratory 20 20 Rate Respiratory 18 Rate [Anterior Bilateral Throughout] Respiratory 18 Rate [ Throughout] Blood Pressure 170/104 [Left Arm] O2 Sat by Pulse 97 Oximetry - General Apperance Constitutional: uncomfortable - EENT EENT: ATNC, PERRL, mucous membranes moist, hearing intact, vision intact - Respiratory Respiratory: chest non-tender, normal breath sounds, no respiratory distress - Cardiovascular Cardiovascular: regular rate Extremities: no peripheral edema bilat, no clubbing, cyanosis, no inflammation, no ischemia or petechiae - Gastrointestinal Gastrointestinal: normoactive bowel sounds, non-distended - Integumentary Integumentary: normal - Neurologic Cranial nerve examination: PERRL, EOMI, VFF, V1/V2/V3 grossly intact, face symmetric, tongue midline, intact, intact shoulder shrug, intact cough reflex, Intact Vestibulo-ocular r, intact corneal reflex, normal palatal elevation Speech examination: intact Detailed motor examination: full strength in all candido Motor examination - right side: 03/04: biceps, triceps, wrist flexion, wrist extension, silk top hat body maker, hip flexors, knee extensors, dorsiflexion, toe extension (EHL) , plantarflexion Motor examination - left side: 03/04: biceps, triceps, wrist flexion, wrist extension, silk top hat body maker, hip flexors, knee extensors, dorsiflexion, toe extension (EHL) , plantarflexion Detailed sensory examination: intact, light touch, pain, temperature Reflexes: 2+: ankle, bicep, knee, tricep - Musculoskeletal Musculoskeletal: no fluid collection, no pain, normal range of motion - Psychiatric Psychiatric: mood/affect appropriate, cooperative - Laboratory Findings CBC and BMP: 12/21/16 06:05 12/21/16 06:05 Abnormal Lab Findings: Abnormal Labs 12/18/16 12/18/16 12/19/16 06:17 06:17 06:46 WBC 11.4 H 15.6 H MCH 27 L 27 L Lymph % (Auto) 9.2 L 7.5 L [place] % (Auto) Lymph # 1.1 L [place] # 1.0 H Seg Neutrophils % 84.5 H 85.4 H Seg Neutrophils # 9.6 H 13.4 H Sodium Potassium Chloride Carbon Dioxide 19 L BUN Creatinine Glucose POC Glucose Calcium 8.2 L 12/19/16 12/19/16 12/21/16 06:46 16:08 06:05 WBC MCH 27 L Lymph % (Auto) [place] % (Auto) 8.2 H Lymph # [place] # Seg Neutrophils % 74.9 H Seg Neutrophils # Sodium 132 L Potassium 3.3 L Chloride 92.4 L Carbon Dioxide BUN Creatinine 0.6 L Glucose 119 H POC Glucose 123 H Calcium 12/21/16 06:05 WBC MCH Lymph % (Auto) [place] % (Auto) Lymph # [place] # Seg Neutrophils % Seg Neutrophils # Sodium Potassium 3.1 L Chloride 96.3 L Carbon Dioxide BUN 5 L Creatinine Glucose POC Glucose Calcium 8.0 L
--- NOTE | 2016-12-21 12:44 | Event Note ---
Date: 12/21/16 Patient was seen this morning. Patient reports me that she was seen by Dr. Diaz yesterday afternoon. We will transfer service to Dr. Diaz's service.
--- NOTE | 2016-12-21 12:59 | Progress Note ---
Assessment and Plan Assessment and plan: 1. Sepsis POA due to meningitis - viral vs bacterial-continued to have temp spikes overnight with Tmax 102.3 but temp seems to be trending this morning with some clinical improvement in headache and neck stiffness; cont IV vancomycin/ rocephin / acyclovir; droplet isolation. She was not started on IV dexamethasone with the iniation of antiobiotics on admission and at this point it s NOT recommended to be given to patients who have started antimicrobial coverage because it is unlikely to improve patient outcomes; /tue case with Dr. Goodwin ([place]) and he recommended repeat blood c/s; MRI brain with contrast pending. MRI without contrast revealed abnormality involving the splinting him and body of the corpus callosum and also another small suspected focus in the left cerebellum anteriolaterally with various possibilities including acute ischemia versus demyelination or neoplastic process such as lymphoma. There is the possibility of listeria monocytogenes given the fact that she is about 3 weeks post - -she has had no abdominal pain or diarrhea prior to her admission or since admission so this may be less likely; EEG revealed no findings to suggest neuronal dysfunction, cortical irritability , epileptiform abnormalities or seizures. cont po NSAID with ibuprofen ; d/c toradol; neurology following. CSF -HSV 1/2 PCR ordered as a send out to [facility] ( miscellaneous order)- f/u result 2. Headache due to meningitis and possible spinal headache- improving; cont current managment 3. DVT prophylaxis- lovenox patient was accepted at [facility] - but no bed has been available; may decide to her in view of signs of improvement and ID availability and neurology input Patient and updated at the bedside and plan of care discussed; all questions have been answered History Interval history: No new issues overnight. Hospitalist Physical - Constitutional Vitals: Temp Pulse Resp BP Pulse Ox 98.4 F 93 H 18 170/104 98 12/21/16 07:40 12/21/16 08:44 12/21/16 08:44 12/21/16 07:40 12/21/16 11:13 General appearance: Present: no acute distress, other (ill looking but appears better than yesterday ) - EENT Eyes: Present: PERRL, EOM intact ENT: hearing intact, clear oral mucosa, dentition normal - Neck Neck: Present: supple, normal ROM - Respiratory Respiratory effort: normal Respiratory: bilateral: CTA - Cardiovascular Rhythm: regular Heart Sounds: Present: S1 & S2. Absent: gallop, rub - Extremities Extremities: no ischemia, No edema, Full ROM - Abdominal General gastrointestinal: soft, non-tender, non-distended, normal bowel sounds - Integumentary Integumentary: Present: clear, warm, dry - Neurologic Neurologic: CNII-XII intact, moves all extremities Results - Labs CBC & Chem 7: 12/21/16 06:05 12/21/16 06:05 Labs: Laboratory Last Values WBC 9.4 K/mm3 (4.5-11.0) 12/21/16 06:05 RBC 4.21 M/mm3 (3.65-5.03) 12/21/16 06:05 Hgb 11.5 gm/dl (10.1-14.3) 12/21/16 06:05 Hct 35.3 % (30.3-42.9) 12/21/16 06:05 MCV 84 fl (79-97) 12/21/16 06:05 MCH 27 pg (28-32) L 12/21/16 06:05 MCHC 33 % (30-34) 12/21/16 06:05 RDW 14.5 % (13.2-15.2) 12/21/16 06:05 Plt Count 276 K/mm3 (140-440) 12/21/16 06:05 Lymph % (Auto) 16.4 % (13.4-35.0) 12/21/16 06:05 [place] % (Auto) 8.2 % (0.0-7.3) H 12/21/16 06:05 Eos % (Auto) 0.2 % (0.0-4.3) 12/21/16 06:05 Baso % (Auto) 0.3 % (0.0-1.8) 12/21/16 06:05 Lymph # 1.5 K/mm3 (1.2-5.4) 12/21/16 06:05 [place] # 0.8 K/mm3 (0.0-0.8) 12/21/16 06:05 Eos # 0.0 K/mm3 (0.0-0.4) 12/21/16 06:05 Baso # 0.0 K/mm3 (0.0-0.1) 12/21/16 06:05 Seg Neutrophils % 74.9 % (40.0-70.0) H 12/21/16 06:05 Seg Neutrophils # 7.0 K/mm3 (1.8-7.7) 12/21/16 06:05 PT 14.9 Sec. (12.2-14.9) 12/17/16 14:13 INR 1.18 (0.87-1.13) H 12/17/16 14:13 VBG pH 7.399 (7.320-7.420) 12/17/16 14:13 Sodium 137 mmol/L (137-145) 12/21/16 06:05 Potassium 3.1 mmol/L (3.6-5.0) L 12/21/16 06:05 Chloride 96.3 mmol/L (98-107) L 12/21/16 06:05 Carbon Dioxide 27 mmol/L (22-30) 12/21/16 06:05 Anion Gap 17 mmol/L 12/21/16 06:05 BUN 5 mg/dL (7-17) L 12/21/16 06:05 Creatinine 0.7 mg/dL (0.7-1.2) 12/21/16 06:05 Estimated GFR > 60 ml/min 12/21/16 06:05 BUN/Creatinine Ratio 7.14 % 12/21/16 06:05 Glucose 89 mg/dL (65-100) 12/21/16 06:05 POC Glucose 123 (70-105) H 12/19/16 16:08 Lactic Acid 0.8 mmol/L (0.7-2.0) 12/17/16 23:47 Calcium 8.0 mg/dL (8.4-10.2) L 12/21/16 06:05 Total Bilirubin 0.6 mg/dL (0.1-1.2) 12/17/16 14:13 AST 29 units/L (5-40) 12/17/16 14:13 ALT 29 units/L (7-56) 12/17/16 14:13 Alkaline Phosphatase 95 units/L (35-129) 12/17/16 14:13 Total Protein 8.0 g/dL (6.3-8.2) 12/17/16 14:13 Albumin 3.9 g/dL (3.9-5) 12/17/16 14:13 Albumin/Globulin Ratio 1.0 % 12/17/16 14:13 Urine Color Yellow (Yellow) 12/17/16 14:35 Urine Turbidity Clear (Clear) 12/17/16 14:35 Urine pH 5.0 (5.0-7.0) 12/17/16 14:35 Ur Specific [place] 1.017 (1.003-1.030) 12/17/16 14:35 Urine Protein <15 mg/dl mg/dL (Negative) 12/17/16 14:35 Urine Glucose (UA) Neg mg/dL (Negative) 12/17/16 14:35 Urine Ketones 20 mg/dL (Negative) 12/17/16 14:35 Urine Blood Neg (Negative) 12/17/16 14:35 Urine Nitrite Neg (Negative) 12/17/16 14:35 Urine Bilirubin Neg (Negative) 12/17/16 14:35 Urine Urobilinogen < 2.0 mg/dL (<2.0) 12/17/16 14:35 Ur Leukocyte Esterase Neg (Negative) 12/17/16 14:35 Urine WBC (Auto) 3.0 /HPF (0.0-6.0) 12/17/16 14:35 Urine RBC (Auto) 4.0 /HPF (0.0-6.0) 12/17/16 14:35 U Epithel Cells (Auto) 1.0 /HPF (0-13.0) 12/17/16 14:35 Urine Mucus 1+ /HPF 12/17/16 14:35 CSF Appearance Clear 12/17/16 17:49 CSF Color Colorless 12/17/16 17:49 CSF WBC 186 /mm3 (1-10) 12/17/16 17:49 CSF RBC 6 /mm3 (0-0) 12/17/16 17:49 CSF Seg Neutrophils 92.7 % (0-6) 12/17/16 17:49 CSF Lymphocytes % 7.3 % (40-80) 12/17/16 17:49 CSF Reactive Lymphs 0 % 12/17/16 17:49 CSF Monocytes % 0 % (15-45) 12/17/16 17:49 CSF Eosinophils % 0 % 12/17/16 17:49 CSF Basophils 0 % 12/17/16 17:49 CSF Pathologist Review C 12/17/16 17:49 CSF Glucose 49 mg/dL 12/17/16 17:49 CSF Total Protein 69 mg/dL 12/17/16 17:49 Vancomycin Trough 14.3 ug/mL (5.0-20.0) 12/21/16 08:23 HIV 1&2 Antibody Rapid Non react (Non React) 12/20/16 09:30 HIV P24 Antigen Non react (Non React) 12/20/16 09:30
--- NOTE | 2016-12-21 19:43 | Progress Note ---
Subjective Date of service: 12/21/16 Principal diagnosis: meningitis Interval history: Patient feels better today. No fever or chills. Still has mild headache. VS - TEMP 98. CHEST - Good air entry cvs - s1s2 abd - bs+ extr - no edema MRI done yesterday indicates some abnormal signals assessment Meningitis r/o septic emboli REcommendation mri with contrast. Continue current iv antibiotics Objective - Constitutional Vitals: Vital Signs Temp Pulse Resp BP Pulse Ox 98.8 F 98 H 20 140/87 100 12/21/16 16:35 12/21/16 16:35 12/21/16 16:35 12/21/16 16:35 12/21/16 16:35 Temperature -Last 24 Hours Temperature 98.8 F Temperature 98.4 F Temperature 101.1 F - Labs CBC & Chem 7: 12/21/16 06:05 12/21/16 06:05 Labs: Abnormal lab results 12/21/16 12/21/16 Range/Units 06:05 06:05 MCH 27 L (28-32) pg [place] % (Auto) 8.2 H (0.0-7.3) % Seg Neutrophils % 74.9 H (40.0-70.0) % Potassium 3.1 L (3.6-5.0) mmol/L Chloride 96.3 L (98-107) mmol/L BUN 5 L (7-17) mg/dL Calcium 8.0 L (8.4-10.2) mg/dL
[2016-12-21] MEDS: VANCOMYCIN VIAL 1,250 MG in NACL 0.9% 250ML 250 ML IV SCH (23:55)
[2016-12-22] MEDS: PERCOCET 5/325 PO PRN ×2 (01:55→19:06)
[2016-12-22] MEDS: ZOVIRAX 800 MG in NACL 0.9% 100 ML IV SCH (05:15)
[2016-12-22] MEDS: DILAUDID IV PRN ×6 (05:58→21:45)
[2016-12-22] MEDS: ROCEPHIN/NS 2 GM/100 ML 2 GM/100 ML BAG IV SCH ×2 (07:05→19:08)
[2016-12-22] MEDS: VANCOMYCIN VIAL 1,250 MG in NACL 0.9% 250ML 250 ML IV SCH ×3 (08:06→21:59)
--- NOTE | 2016-12-22 08:20 | Magnetic Resonance Report ---
MRI BRAIN WITH CONTRAST: 12/21/16 CLINICAL: Restricted diffusion of the splenium of the corpus callosum and the left cerebellum on the noncontrast MRI. TECHNIQUE: Coronal and axial postcontrast T1 sequences on a 1.5 Radha magnet. 12.0 cc of Multihance was injected intravenously and consent was obtained prior to the administration of the contrast. FINDINGS: No enhancing lesion and no abnormal signal. IMPRESSION: Negative contrast MRI brain. Nonenhancing corpus callosal and cerebellar lesions. The differential includes acute ischemia and demyelination. Tumor is almost certainly ruled out by the lack of enhancement.
[2016-12-22] MEDS: DUONEB 0.5 MG-3 MG/3 ML SOLN IH SCH ×3 (08:34→20:30)
--- NOTE | 2016-12-22 10:39 | Progress Note ---
Assessment and Plan 31 YO F p/w 1 week of crescendo MATTA w/ meningeal sx and neck stiffness on exam. CTH neg. CSF WBC 205 L93% Glucose 49 and Protein 69. Clinical syn suggestive of infectious meningitis-? viral vs. bacterial. EEG normal. MRI Brain report of restricted diffusion in splenium with unclear clinical significance, likely asymptomatia ischemia vs. demyelination secondary to meningitis. MRI Brain + Pete w/o enhancement neg. HSV 1/2 PCRs neg. 1. Defer antimicrobials to ID consult but can likely D/C Acyclovir. 2. [place]: NSAIDS PO/IV prn e.g. Motrin 400-800 mg PO Q3-6hrs prn, Toradol 15 -30mg IV Q4-6hrs prn, Naprosyn 250-500mg PO Q4-6hrs prn 3. I have instructed pt to make appt w/ outpt neurologist for follow up MRI Brain +/- Pete in 3-6 months to assess resolution. 4. We can revisit as needed. Subjective Date of service: 12/22/16 Principal diagnosis: meningitis Interval history: MATTA waxing and waning-improved this AM Objective - Vital Sign Vital Signs - 12hr 12/21/16 12/22/16 12/22/16 23:00 01:55 05:58 Temperature 99 F Pulse Rate [ Anterior Bilateral Throughout] Pulse Rate [ 90 Left Radial] Pulse Rate [ Throughout] Respiratory 20 20 18 Rate Respiratory Rate [Anterior Bilateral Throughout] Respiratory Rate [ Throughout] Blood Pressure 140/83 [Left Arm] O2 Sat by Pulse 100 Oximetry 12/22/16 12/22/16 12/22/16 07:45 08:15 08:34 Temperature 98.6 F Pulse Rate [ 84 78 Anterior Bilateral Throughout] Pulse Rate [ 70 Left Radial] Pulse Rate [ 84 78 Throughout] Respiratory 20 Rate Respiratory 18 16 Rate [Anterior Bilateral Throughout] Respiratory 18 16 Rate [ Throughout] Blood Pressure 147/86 [Left Arm] O2 Sat by Pulse 97 Oximetry - General Apperance Constitutional: comfortable - EENT EENT: ATNC, PERRL, mucous membranes moist, hearing intact, vision intact - Respiratory Respiratory: chest non-tender, normal breath sounds, no respiratory distress - Cardiovascular Cardiovascular: regular rate Extremities: no peripheral edema bilat, no clubbing, cyanosis, no inflammation, no ischemia or petechiae - Gastrointestinal Gastrointestinal: normoactive bowel sounds, non-distended - Integumentary Integumentary: normal - Neurologic Cranial nerve examination: PERRL, EOMI, VFF, V1/V2/V3 grossly intact, face symmetric, tongue midline, intact, intact shoulder shrug, intact cough reflex, Intact Vestibulo-ocular r, intact corneal reflex, normal palatal elevation Speech examination: intact Detailed motor examination: full strength in all candido Motor examination - right side: 5/5: biceps, triceps, wrist flexion, wrist extension, childbirth educator, hip flexors, knee extensors, dorsiflexion, toe extension (EHL) , plantarflexion Motor examination - left side: 5/5: biceps, triceps, wrist flexion, wrist extension, childbirth educator, hip flexors, knee extensors, dorsiflexion, toe extension (EHL) , plantarflexion Detailed sensory examination: intact, light touch, temperature Reflex and gait examination: intact Reflexes: 2+: ankle, bicep, knee, tricep - Musculoskeletal Musculoskeletal: no fluid collection, no pain, normal range of motion - Psychiatric Psychiatric: mood/affect appropriate, cooperative - Laboratory Findings CBC and BMP: 12/21/16 06:05 12/21/16 06:05 Abnormal Lab Findings: Abnormal Labs 12/18/16 12/18/16 12/19/16 06:17 06:17 06:46 WBC 11.4 H 15.6 H MCH 27 L 27 L Lymph % (Auto) 9.2 L 7.5 L [place] % (Auto) Lymph # 1.1 L [place] # 1.0 H Seg Neutrophils % 84.5 H 85.4 H Seg Neutrophils # 9.6 H 13.4 H Sodium Potassium Chloride Carbon Dioxide 19 L BUN Creatinine Glucose POC Glucose Calcium 8.2 L 12/19/16 12/19/16 12/21/16 06:46 16:08 06:05 WBC MCH 27 L Lymph % (Auto) [place] % (Auto) 8.2 H Lymph # [place] # Seg Neutrophils % 74.9 H Seg Neutrophils # Sodium 132 L Potassium 3.3 L Chloride 92.4 L Carbon Dioxide BUN Creatinine 0.6 L Glucose 119 H POC Glucose 123 H Calcium 12/21/16 06:05 WBC MCH Lymph % (Auto) [place] % (Auto) Lymph # [place] # Seg Neutrophils % Seg Neutrophils # Sodium Potassium 3.1 L Chloride 96.3 L Carbon Dioxide BUN 5 L Creatinine Glucose POC Glucose Calcium 8.0 L
[2016-12-22] MEDS: PROTONIX PO SCH (10:58)
[2016-12-22] MEDS: LOVENOX SUB-Q SCH (10:58)
[2016-12-22] MEDS: ZOFRAN IV PRN (13:45)
--- NOTE | 2016-12-22 14:17 | Progress Note ---
Assessment and Plan Assessment and plan: 1. Sepsis. Continue antibiotics per ID. 2. Headache with meningeal symptoms. CT of the head negative. CSF revealed WBC 205 with 93% lymphocytes, glucose 49 and protein 69.? Viral versus bacterial meningitis. EEG normal. MRI brain report of restricted diffusion splenium with unclear clinical significance, likely asymptomatia ischemia vs. demyelination secondary to meningitis. MRI Brain + Pete w/o enhancement neg. HSV 1/2 PCRs neg. continue NSAIDs of Motrin and Toradol and Naprosyn 3. DVT prophylaxis- lovenox History Interval history: No new issues overnight. Hospitalist Physical - Constitutional Vitals: Temp Pulse Resp BP Pulse Ox 98.6 F 78 16 147/86 97 12/22/16 08:15 12/22/16 08:34 12/22/16 08:34 12/22/16 08:15 12/22/16 08:15 General appearance: Present: no acute distress, other (ill looking but appears better than yesterday ) - EENT Eyes: Present: PERRL, EOM intact ENT: hearing intact, clear oral mucosa, dentition normal - Neck Neck: Present: supple, normal ROM - Respiratory Respiratory effort: normal Respiratory: bilateral: CTA - Cardiovascular Rhythm: regular Heart Sounds: Present: S1 & S2. Absent: gallop, rub - Extremities Extremities: no ischemia, No edema, Full ROM - Abdominal General gastrointestinal: soft, non-tender, non-distended, normal bowel sounds - Integumentary Integumentary: Present: clear, warm, dry - Neurologic Neurologic: CNII-XII intact, moves all extremities Results - Labs CBC & Chem 7: 12/21/16 06:05 12/21/16 06:05 Labs: Laboratory Last Values WBC 9.4 K/mm3 (4.5-11.0) 12/21/16 06:05 RBC 4.21 M/mm3 (3.65-5.03) 12/21/16 06:05 Hgb 11.5 gm/dl (10.1-14.3) 12/21/16 06:05 Hct 35.3 % (30.3-42.9) 12/21/16 06:05 MCV 84 fl (79-97) 12/21/16 06:05 MCH 27 pg (28-32) L 12/21/16 06:05 MCHC 33 % (30-34) 12/21/16 06:05 RDW 14.5 % (13.2-15.2) 12/21/16 06:05 Plt Count 276 K/mm3 (140-440) 12/21/16 06:05 Lymph % (Auto) 16.4 % (13.4-35.0) 12/21/16 06:05 [place] % (Auto) 8.2 % (0.0-7.3) H 12/21/16 06:05 Eos % (Auto) 0.2 % (0.0-4.3) 12/21/16 06:05 Baso % (Auto) 0.3 % (0.0-1.8) 12/21/16 06:05 Lymph # 1.5 K/mm3 (1.2-5.4) 12/21/16 06:05 [place] # 0.8 K/mm3 (0.0-0.8) 12/21/16 06:05 Eos # 0.0 K/mm3 (0.0-0.4) 12/21/16 06:05 Baso # 0.0 K/mm3 (0.0-0.1) 12/21/16 06:05 Seg Neutrophils % 74.9 % (40.0-70.0) H 12/21/16 06:05 Seg Neutrophils # 7.0 K/mm3 (1.8-7.7) 12/21/16 06:05 PT 14.9 Sec. (12.2-14.9) 12/17/16 14:13 INR 1.18 (0.87-1.13) H 12/17/16 14:13 VBG pH 7.399 (7.320-7.420) 12/17/16 14:13 Sodium 137 mmol/L (137-145) 12/21/16 06:05 Potassium 3.1 mmol/L (3.6-5.0) L 12/21/16 06:05 Chloride 96.3 mmol/L (98-107) L 12/21/16 06:05 Carbon Dioxide 27 mmol/L (22-30) 12/21/16 06:05 Anion Gap 17 mmol/L 12/21/16 06:05 BUN 5 mg/dL (7-17) L 12/21/16 06:05 Creatinine 0.7 mg/dL (0.7-1.2) 12/21/16 06:05 Estimated GFR > 60 ml/min 12/21/16 06:05 BUN/Creatinine Ratio 7.14 % 12/21/16 06:05 Glucose 89 mg/dL (65-100) 12/21/16 06:05 POC Glucose 123 (70-105) H 12/19/16 16:08 Lactic Acid 0.8 mmol/L (0.7-2.0) 12/17/16 23:47 Calcium 8.0 mg/dL (8.4-10.2) L 12/21/16 06:05 Total Bilirubin 0.6 mg/dL (0.1-1.2) 12/17/16 14:13 AST 29 units/L (5-40) 12/17/16 14:13 ALT 29 units/L (7-56) 12/17/16 14:13 Alkaline Phosphatase 95 units/L (35-129) 12/17/16 14:13 Total Protein 8.0 g/dL (6.3-8.2) 12/17/16 14:13 Albumin 3.9 g/dL (3.9-5) 12/17/16 14:13 Albumin/Globulin Ratio 1.0 % 12/17/16 14:13 Urine Color Yellow (Yellow) 12/17/16 14:35 Urine Turbidity Clear (Clear) 12/17/16 14:35 Urine pH 5.0 (5.0-7.0) 12/17/16 14:35 Ur Specific [place] 1.017 (1.003-1.030) 12/17/16 14:35 Urine Protein <15 mg/dl mg/dL (Negative) 12/17/16 14:35 Urine Glucose (UA) Neg mg/dL (Negative) 12/17/16 14:35 Urine Ketones 20 mg/dL (Negative) 12/17/16 14:35 Urine Blood Neg (Negative) 12/17/16 14:35 Urine Nitrite Neg (Negative) 12/17/16 14:35 Urine Bilirubin Neg (Negative) 12/17/16 14:35 Urine Urobilinogen < 2.0 mg/dL (<2.0) 12/17/16 14:35 Ur Leukocyte Esterase Neg (Negative) 12/17/16 14:35 Urine WBC (Auto) 3.0 /HPF (0.0-6.0) 12/17/16 14:35 Urine RBC (Auto) 4.0 /HPF (0.0-6.0) 12/17/16 14:35 U Epithel Cells (Auto) 1.0 /HPF (0-13.0) 12/17/16 14:35 Urine Mucus 1+ /HPF 12/17/16 14:35 CSF Appearance Clear 12/17/16 17:49 CSF Color Colorless 12/17/16 17:49 CSF WBC 186 /mm3 (1-10) 12/17/16 17:49 CSF RBC 6 /mm3 (0-0) 12/17/16 17:49 CSF Seg Neutrophils 92.7 % (0-6) 12/17/16 17:49 CSF Lymphocytes % 7.3 % (40-80) 12/17/16 17:49 CSF Reactive Lymphs 0 % 12/17/16 17:49 CSF Monocytes % 0 % (15-45) 12/17/16 17:49 CSF Eosinophils % 0 % 12/17/16 17:49 CSF Basophils 0 % 12/17/16 17:49 CSF Pathologist Review C 12/17/16 17:49 CSF Glucose 49 mg/dL 12/17/16 17:49 CSF Total Protein 69 mg/dL 12/17/16 17:49 Vancomycin Trough 14.3 ug/mL (5.0-20.0) 12/21/16 08:23 Herpes Simplex Source Csf 12/20/16 Unknown HSV I DNA PCR Not detected (Not Detected) 12/20/16 Unknown HSV II DNA PCR Not detected (Not Detected) 12/20/16 Unknown HIV 1&2 Antibody Rapid Non react (Non React) 12/20/16 09:30 HIV P24 Antigen Non react (Non React) 12/20/16 09:30
--- NOTE | 2016-12-22 18:02 | Progress Note ---
Subjective Date of service: 12/22/16 Principal diagnosis: meningitis Interval history: Patient feels better today. No fever or chills. Still has mild headache. VS - TEMP 98. CHEST - Good air entry cvs - s1s2 abd - bs+ extr - no edema MRI done yesterday indicates some abnormal signals. MRI with contrast showed nonenhancing lesions of unclear significance but unlikely to be tumor or viral. assessment Meningitis Possible ischemia or demyelination REcommendation Continue current iv antibiotics. D/C acyclovir. Avoid NSAIDS for now. Objective - Constitutional Vitals: Vital Signs Temp Pulse Resp BP Pulse Ox 99.2 F 106 H 18 127/84 98 12/22/16 16:50 12/22/16 16:50 12/22/16 16:50 12/22/16 16:50 12/22/16 16:50 Temperature -Last 24 Hours Temperature 99.2 F Temperature 98.6 F Temperature 99 F - Labs CBC & Chem 7: 12/21/16 06:05 12/21/16 06:05
[2016-12-23] MEDS: PERCOCET 5/325 PO PRN ×2 (00:35→12:50)
[2016-12-23] MEDS: ROCEPHIN/NS 2 GM/100 ML 2 GM/100 ML BAG IV SCH ×2 (05:21→17:11)
[2016-12-23] MEDS: VANCOMYCIN VIAL 1,250 MG in NACL 0.9% 250ML 250 ML IV SCH ×3 (06:22→22:15)
[2016-12-23] MEDS: NACL 0.9% 1000 ML 1,000 ML IV SCH (06:22)
[2016-12-23] MEDS: DUONEB 0.5 MG-3 MG/3 ML SOLN IH SCH ×3 (09:06→20:00)
[2016-12-23] MEDS: PROTONIX PO SCH (09:38)
[2016-12-23] MEDS: LOVENOX SUB-Q SCH (09:38)
[2016-12-23] MEDS: DILAUDID IV PRN ×4 (09:50→22:19)
[2016-12-23] MEDS: ZOFRAN IV PRN (10:47)
--- NOTE | 2016-12-23 15:57 | Progress Note ---
Assessment and Plan Assessment and plan: Patient is a 31-year-old female recently presented to the hospital with headache concerning for meningitis. 1. Sepsis. Continue antibiotics per ID. 2. Headache with meningeal symptoms. CT of the head negative. CSF revealed WBC 205 with 93% lymphocytes, glucose 49 and protein 69.? Viral versus bacterial meningitis. EEG normal. MRI brain report of restricted diffusion splenium with unclear clinical significance, likely asymptomatia ischemia vs. demyelination secondary to meningitis. MRI Brain + Pete w/o enhancement neg. HSV 1/2 PCRs neg. continue NSAIDs of Motrin and Toradol and Naprosyn I discussed with infectious disease specialist today and for further evaluation and appears that the patient CSF fluids is consistent with NSAIDs use rather meningitis. The patient also reports today of some pelvic pain prior to this which prompted her to start taking some NSAIDs. She remains afebrile with the escalating antibiotics in a.m. and we'll take her off isolation today. 3. DVT prophylaxis- lovenox 4. Hypertension 5. Plan discussed with the patient in detail and also with infectious diseases. 6. Anticipate discharge exam if remains stable. History Interval history: Patient seen and examined this morning in no acute distress, reports improvement in the headache. Blood pressure was mildly elevated today but has improved. Denies any chest pain, nausea, vomiting, diarrhea No fever noted No adverse events reported to me by nursing staff Hospitalist Physical - Physical exam Narrative exam: VITAL SIGNS: Reviewed. GENERAL: The patient appeared well nourished and normally developed. Vital signs as documented. HEAD: No signs of head trauma. EYES: Pupils are equal. Extraocular motions intact. EARS: Hearing grossly intact. MOUTH: Oropharynx is normal. NECK: No adenopathy, no JVD. CHEST: Chest with clear breath sounds bilaterally. No wheezes, rales, or rhonchi. CARDIAC: Regular rate and rhythm. S1 and S2, without murmurs, gallops, or rubs. VASCULAR: No Edema. Peripheral pulses normal and equal in all extremities. ABDOMEN: Soft, without detectable tenderness. No sign of distention. No rebound or guarding, and no masses palpated. Bowel Sounds normal. MUSCULOSKELETAL: Good range of motion of all major joints. Extremities without clubbing, cyanosis or edema. NEUROLOGIC EXAM: Alert and oriented x 3. No focal sensory or strength deficits. Speech normal. Follows commands. PSYCHIATRIC: Mood normal. SKIN: No rash or lesions. - Constitutional Vitals: Temp Pulse Resp BP Pulse Ox 98 F 87 18 158/110 100 12/23/16 15:43 12/23/16 15:43 12/23/16 15:43 12/23/16 15:43 12/23/16 15:43 General appearance: Present: no acute distress, other (ill looking but appears better than yesterday ) Results - Labs CBC & Chem 7: 12/21/16 06:05 12/21/16 06:05 Labs: Laboratory Last Values WBC 9.4 K/mm3 (4.5-11.0) 12/21/16 06:05 RBC 4.21 M/mm3 (3.65-5.03) 12/21/16 06:05 Hgb 11.5 gm/dl (10.1-14.3) 12/21/16 06:05 Hct 35.3 % (30.3-42.9) 12/21/16 06:05 MCV 84 fl (79-97) 12/21/16 06:05 MCH 27 pg (28-32) L 12/21/16 06:05 MCHC 33 % (30-34) 12/21/16 06:05 RDW 14.5 % (13.2-15.2) 12/21/16 06:05 Plt Count 276 K/mm3 (140-440) 12/21/16 06:05 Lymph % (Auto) 16.4 % (13.4-35.0) 12/21/16 06:05 [place] % (Auto) 8.2 % (0.0-7.3) H 12/21/16 06:05 Eos % (Auto) 0.2 % (0.0-4.3) 12/21/16 06:05 Baso % (Auto) 0.3 % (0.0-1.8) 12/21/16 06:05 Lymph # 1.5 K/mm3 (1.2-5.4) 12/21/16 06:05 Major # 0.8 K/mm3 (0.0-0.8) 12/21/16 06:05 Eos # 0.0 K/mm3 (0.0-0.4) 12/21/16 06:05 Baso # 0.0 K/mm3 (0.0-0.1) 12/21/16 06:05 Seg Neutrophils % 74.9 % (40.0-70.0) H 12/21/16 06:05 Seg Neutrophils # 7.0 K/mm3 (1.8-7.7) 12/21/16 06:05 Abs Lymphs (Manual) 1680 cells/uL (850-3900) 12/21/16 06:05 PT 14.9 Sec. (12.2-14.9) 12/17/16 14:13 INR 1.18 (0.87-1.13) H 12/17/16 14:13 VBG pH 7.399 (7.320-7.420) 12/17/16 14:13 Sodium 137 mmol/L (137-145) 12/21/16 06:05 Potassium 3.1 mmol/L (3.6-5.0) L 12/21/16 06:05 Chloride 96.3 mmol/L (98-107) L 12/21/16 06:05 Carbon Dioxide 27 mmol/L (22-30) 12/21/16 06:05 Anion Gap 17 mmol/L 12/21/16 06:05 BUN 5 mg/dL (7-17) L 12/21/16 06:05 Creatinine 0.7 mg/dL (0.7-1.2) 12/21/16 06:05 Estimated GFR > 60 ml/min 12/21/16 06:05 BUN/Creatinine Ratio 7.14 % 12/21/16 06:05 Glucose 89 mg/dL (65-100) 12/21/16 06:05 POC Glucose 123 (70-105) H 12/19/16 16:08 Lactic Acid 0.8 mmol/L (0.7-2.0) 12/17/16 23:47 Calcium 8.0 mg/dL (8.4-10.2) L 12/21/16 06:05 Total Bilirubin 0.6 mg/dL (0.1-1.2) 12/17/16 14:13 AST 29 units/L (5-40) 12/17/16 14:13 ALT 29 units/L (7-56) 12/17/16 14:13 Alkaline Phosphatase 95 units/L (35-129) 12/17/16 14:13 Total Protein 8.0 g/dL (6.3-8.2) 12/17/16 14:13 Albumin 3.9 g/dL (3.9-5) 12/17/16 14:13 Albumin/Globulin Ratio 1.0 % 12/17/16 14:13 Urine Color Yellow (Yellow) 12/17/16 14:35 Urine Turbidity Clear (Clear) 12/17/16 14:35 Urine pH 5.0 (5.0-7.0) 12/17/16 14:35 Ur Specific [place] 1.017 (1.003-1.030) 12/17/16 14:35 Urine Protein <15 mg/dl mg/dL (Negative) 12/17/16 14:35 Urine Glucose (UA) Neg mg/dL (Negative) 12/17/16 14:35 Urine Ketones 20 mg/dL (Negative) 12/17/16 14:35 Urine Blood Neg (Negative) 12/17/16 14:35 Urine Nitrite Neg (Negative) 12/17/16 14:35 Urine Bilirubin Neg (Negative) 12/17/16 14:35 Urine Urobilinogen < 2.0 mg/dL (<2.0) 12/17/16 14:35 Ur Leukocyte Esterase Neg (Negative) 12/17/16 14:35 Urine WBC (Auto) 3.0 /HPF (0.0-6.0) 12/17/16 14:35 Urine RBC (Auto) 4.0 /HPF (0.0-6.0) 12/17/16 14:35 U Epithel Cells (Auto) 1.0 /HPF (0-13.0) 12/17/16 14:35 Urine Mucus 1+ /HPF 12/17/16 14:35 CSF Appearance Clear 12/17/16 17:49 CSF Color Colorless 12/17/16 17:49 CSF WBC 186 /mm3 (1-10) 12/17/16 17:49 CSF RBC 6 /mm3 (0-0) 12/17/16 17:49 CSF Seg Neutrophils 92.7 % (0-6) 12/17/16 17:49 CSF Lymphocytes % 7.3 % (40-80) 12/17/16 17:49 CSF Reactive Lymphs 0 % 12/17/16 17:49 CSF Monocytes % 0 % (15-45) 12/17/16 17:49 CSF Eosinophils % 0 % 12/17/16 17:49 CSF Basophils 0 % 12/17/16 17:49 CSF Pathologist Review C 12/17/16 17:49 CSF Glucose 49 mg/dL 12/17/16 17:49 CSF Total Protein 69 mg/dL 12/17/16 17:49 Vancomycin Trough 15.2 ug/mL (5.0-20.0) 12/23/16 06:19 Lymph Enumerat CD4/CD8 1.86 (0.86-5.00) 12/21/16 06:05 % CD3 Cells 78 % (57-85) 12/21/16 06:05 Absolute CD3 Count 1306 cells/uL (840-3060) 12/21/16 06:05 % CD4 Cells 52 % (30-61) 12/21/16 06:05 Absolute CD4 Count 882 cells/uL (490-1740) 12/21/16 06:05 % CD8 Cells 28 % (12-42) 12/21/16 06:05 Absolute CD8 Count 475 cells/uL (180-1170) 12/21/16 06:05 % CD19 Cells 18 % (6-29) 12/21/16 06:05 Absolute CD19 Count 292 cells/uL (110-660) 12/21/16 06:05 Herpes Simplex Source Csf 12/20/16 Unknown HSV I DNA PCR Not detected (Not Detected) 12/20/16 Unknown HSV II DNA PCR Not detected (Not Detected) 12/20/16 Unknown HIV 1&2 Antibody Rapid Non react (Non React) 12/20/16 09:30 HIV P24 Antigen Non react (Non React) 12/20/16 09:30
--- NOTE | 2016-12-23 18:53 | Progress Note ---
Subjective Date of service: 12/23/16 Principal diagnosis: meningitis Interval history: Patient feels better today. No fever or chills. Still has mild headache. Had an episode of vomitting this morning. VS - TEMP 98. CHEST - Good air entry cvs - s1s2 abd - bs+ extr - no edema assessment Meningitis Possible ischemia or demyelination Possible NSAID related meningitis REcommendation Continue current iv antibiotics. D/C acyclovir. Avoid NSAIDS for now. Consult physical therapy to mobilise patient D/C planning on oral bactrim and Augmentin for 10days. Objective - Constitutional Vitals: Vital Signs Temp Pulse Resp BP Pulse Ox 98 F 87 18 158/110 100 12/23/16 15:43 12/23/16 15:43 12/23/16 15:43 12/23/16 15:43 12/23/16 15:43 Temperature -Last 24 Hours Temperature 98 F Temperature 98.2 F Temperature 97.9 F - Labs CBC & Chem 7: 12/21/16 06:05 12/21/16 06:05
[2016-12-24] MEDS: ROCEPHIN/NS 2 GM/100 ML 2 GM/100 ML BAG IV SCH ×2 (06:48→18:11)
[2016-12-24] MEDS: DILAUDID IV PRN ×3 (06:49→22:56)
[2016-12-24] MEDS: VANCOMYCIN VIAL 1,250 MG in NACL 0.9% 250ML 250 ML IV SCH ×3 (07:53→22:55)
[2016-12-24] MEDS: DUONEB 0.5 MG-3 MG/3 ML SOLN IH SCH (09:20)
[2016-12-24] MEDS: PROTONIX PO SCH (09:38)
[2016-12-24] MEDS: LOVENOX SUB-Q SCH (09:38)
--- NOTE | 2016-12-24 11:31 | Progress Note ---
Assessment and Plan Assessment and plan: 1. Sepsis. Continue antibiotics per ID. 2. Headache with meningeal symptoms. CT of the head negative. CSF revealed WBC 205 with 93% lymphocytes, glucose 49 and protein 69.? Viral versus bacterial meningitis. EEG normal. MRI brain report of restricted diffusion splenium with unclear clinical significance, likely asymptomatia ischemia vs. demyelination secondary to meningitis. MRI Brain + Pete w/o enhancement neg. HSV 1/2 PCRs neg. continue NSAIDs of Motrin and Toradol and Naprosyn 3. Accelerated hypertension. ? hypertension. This may be contributing to her headache. We will start labetalol. 4.. DVT prophylaxis- lovenox History Interval history: No new issues overnight. Hospitalist Physical - Constitutional Vitals: Temp Pulse Resp BP Pulse Ox 98.3 F 89 12 154/111 99 12/24/16 11:13 12/24/16 11:13 12/24/16 11:13 12/24/16 11:13 12/24/16 11:13 General appearance: Present: no acute distress, other (ill looking but appears better than yesterday ) - EENT Eyes: Present: PERRL, EOM intact ENT: hearing intact, clear oral mucosa, dentition normal - Neck Neck: Present: supple, normal ROM - Respiratory Respiratory effort: normal Respiratory: bilateral: CTA - Cardiovascular Rhythm: regular Heart Sounds: Present: S1 & S2. Absent: gallop, rub - Extremities Extremities: no ischemia, No edema, Full ROM - Abdominal General gastrointestinal: soft, non-tender, non-distended, normal bowel sounds - Integumentary Integumentary: Present: clear, warm, dry - Neurologic Neurologic: CNII-XII intact, moves all extremities Results - Labs CBC & Chem 7: 12/21/16 06:05 12/21/16 06:05 Labs: Laboratory Last Values WBC 9.4 K/mm3 (4.5-11.0) 12/21/16 06:05 RBC 4.21 M/mm3 (3.65-5.03) 12/21/16 06:05 Hgb 11.5 gm/dl (10.1-14.3) 12/21/16 06:05 Hct 35.3 % (30.3-42.9) 12/21/16 06:05 MCV 84 fl (79-97) 12/21/16 06:05 MCH 27 pg (28-32) L 12/21/16 06:05 MCHC 33 % (30-34) 12/21/16 06:05 RDW 14.5 % (13.2-15.2) 12/21/16 06:05 Plt Count 276 K/mm3 (140-440) 12/21/16 06:05 Lymph % (Auto) 16.4 % (13.4-35.0) 12/21/16 06:05 [place] % (Auto) 8.2 % (0.0-7.3) H 12/21/16 06:05 Eos % (Auto) 0.2 % (0.0-4.3) 12/21/16 06:05 Baso % (Auto) 0.3 % (0.0-1.8) 12/21/16 06:05 Lymph # 1.5 K/mm3 (1.2-5.4) 12/21/16 06:05 [place] # 0.8 K/mm3 (0.0-0.8) 12/21/16 06:05 Eos # 0.0 K/mm3 (0.0-0.4) 12/21/16 06:05 Baso # 0.0 K/mm3 (0.0-0.1) 12/21/16 06:05 Seg Neutrophils % 74.9 % (40.0-70.0) H 12/21/16 06:05 Seg Neutrophils # 7.0 K/mm3 (1.8-7.7) 12/21/16 06:05 Abs Lymphs (Manual) 1680 cells/uL (850-3900) 12/21/16 06:05 PT 14.9 Sec. (12.2-14.9) 12/17/16 14:13 INR 1.18 (0.87-1.13) H 12/17/16 14:13 VBG pH 7.399 (7.320-7.420) 12/17/16 14:13 Sodium 137 mmol/L (137-145) 12/21/16 06:05 Potassium 3.1 mmol/L (3.6-5.0) L 12/21/16 06:05 Chloride 96.3 mmol/L (98-107) L 12/21/16 06:05 Carbon Dioxide 27 mmol/L (22-30) 12/21/16 06:05 Anion Gap 17 mmol/L 12/21/16 06:05 BUN 5 mg/dL (7-17) L 12/21/16 06:05 Creatinine 0.7 mg/dL (0.7-1.2) 12/21/16 06:05 Estimated GFR > 60 ml/min 12/21/16 06:05 BUN/Creatinine Ratio 7.14 % 12/21/16 06:05 Glucose 89 mg/dL (65-100) 12/21/16 06:05 POC Glucose 123 (70-105) H 12/19/16 16:08 Lactic Acid 0.8 mmol/L (0.7-2.0) 12/17/16 23:47 Calcium 8.0 mg/dL (8.4-10.2) L 12/21/16 06:05 Total Bilirubin 0.6 mg/dL (0.1-1.2) 12/17/16 14:13 AST 29 units/L (5-40) 12/17/16 14:13 ALT 29 units/L (7-56) 12/17/16 14:13 Alkaline Phosphatase 95 units/L (35-129) 12/17/16 14:13 Total Protein 8.0 g/dL (6.3-8.2) 12/17/16 14:13 Albumin 3.9 g/dL (3.9-5) 12/17/16 14:13 Albumin/Globulin Ratio 1.0 % 12/17/16 14:13 Urine Color Yellow (Yellow) 12/17/16 14:35 Urine Turbidity Clear (Clear) 12/17/16 14:35 Urine pH 5.0 (5.0-7.0) 12/17/16 14:35 Ur Specific [place] 1.017 (1.003-1.030) 12/17/16 14:35 Urine Protein <15 mg/dl mg/dL (Negative) 12/17/16 14:35 Urine Glucose (UA) Neg mg/dL (Negative) 12/17/16 14:35 Urine Ketones 20 mg/dL (Negative) 12/17/16 14:35 Urine Blood Neg (Negative) 12/17/16 14:35 Urine Nitrite Neg (Negative) 12/17/16 14:35 Urine Bilirubin Neg (Negative) 12/17/16 14:35 Urine Urobilinogen < 2.0 mg/dL (<2.0) 12/17/16 14:35 Ur Leukocyte Esterase Neg (Negative) 12/17/16 14:35 Urine WBC (Auto) 3.0 /HPF (0.0-6.0) 12/17/16 14:35 Urine RBC (Auto) 4.0 /HPF (0.0-6.0) 12/17/16 14:35 U Epithel Cells (Auto) 1.0 /HPF (0-13.0) 12/17/16 14:35 Urine Mucus 1+ /HPF 12/17/16 14:35 CSF Appearance Clear 12/17/16 17:49 CSF Color Colorless 12/17/16 17:49 CSF WBC 186 /mm3 (1-10) 12/17/16 17:49 CSF RBC 6 /mm3 (0-0) 12/17/16 17:49 CSF Seg Neutrophils 92.7 % (0-6) 12/17/16 17:49 CSF Lymphocytes % 7.3 % (40-80) 12/17/16 17:49 CSF Reactive Lymphs 0 % 12/17/16 17:49 CSF Monocytes % 0 % (15-45) 12/17/16 17:49 CSF Eosinophils % 0 % 12/17/16 17:49 CSF Basophils 0 % 12/17/16 17:49 CSF Pathologist Review C 12/17/16 17:49 CSF Glucose 49 mg/dL 12/17/16 17:49 CSF Total Protein 69 mg/dL 12/17/16 17:49 Vancomycin Trough 15.2 ug/mL (5.0-20.0) 12/23/16 06:19 Lymph Enumerat CD4/CD8 1.86 (0.86-5.00) 12/21/16 06:05 % CD3 Cells 78 % (57-85) 12/21/16 06:05 Absolute CD3 Count 1306 cells/uL (840-3060) 12/21/16 06:05 % CD4 Cells 52 % (30-61) 12/21/16 06:05 Absolute CD4 Count 882 cells/uL (490-1740) 12/21/16 06:05 % CD8 Cells 28 % (12-42) 12/21/16 06:05 Absolute CD8 Count 475 cells/uL (180-1170) 12/21/16 06:05 % CD19 Cells 18 % (6-29) 12/21/16 06:05 Absolute CD19 Count 292 cells/uL (110-660) 12/21/16 06:05 Herpes Simplex Source Csf 12/20/16 Unknown HSV I DNA PCR Not detected (Not Detected) 12/20/16 Unknown HSV II DNA PCR Not detected (Not Detected) 12/20/16 Unknown HIV 1&2 Antibody Rapid Non react (Non React) 12/20/16 09:30 HIV P24 Antigen Non react (Non React) 12/20/16 09:30
[2016-12-24] MEDS: NORMODYNE PO SCH ×2 (12:40→22:56)
[2016-12-24] MEDS: NACL 0.9% 1000 ML 1,000 ML IV SCH (14:23)
[2016-12-24] MEDS: PERCOCET 5/325 PO PRN (18:26)
--- NOTE | 2016-12-24 20:55 | Progress Note ---
Subjective Date of service: 12/24/16 Principal diagnosis: meningitis Interval history: No complaints VS - TEMP 99. CHEST - Good air entry cvs - s1s2 abd - bs+ extr - no edema assessment Meningitis - possible NSAID related. Possible ischemia or demyelination REcommendation Continue current iv antibiotics. Avoid NSAIDS for now. D/C planning on oral bactrim and Augmentin for 10days. Objective - Constitutional Vitals: Vital Signs Temp Pulse Resp BP Pulse Ox 99.0 F 90 24 157/102 99 12/24/16 14:43 12/24/16 14:43 12/24/16 14:43 12/24/16 14:43 12/24/16 14:43 Temperature -Last 24 Hours Temperature 99.0 F Temperature 98.3 F Temperature 98.5 F Temperature 98.3 F - Labs CBC & Chem 7: 12/21/16 06:05 12/21/16 06:05
[2016-12-25] MEDS: ROCEPHIN/NS 2 GM/100 ML 2 GM/100 ML BAG IV SCH (06:34)
[2016-12-25] MEDS: DILAUDID IV PRN (06:54)
[2016-12-25] MEDS: VANCOMYCIN VIAL 1,250 MG in NACL 0.9% 250ML 250 ML IV SCH (07:35)
--- NOTE | 2016-12-25 09:23 | Progress Note ---
Subjective Date of service: 12/25/16 Principal diagnosis: meningitis Interval history: No complaints. Says she is ready to be discharged. VS - BP elevated. CHEST - Good air entry cvs - s1s2 abd - bs+ extr - no edema assessment Meningitis - possible NSAID related. Possible ischemia or demyelination htn REcommendation d/c vancomycin and ceftriaxone. Will start oral bactrim and augmentin Avoid NSAIDS for now. Control BP and d/c from ID perspective. Objective - Constitutional Vitals: Vital Signs Temp Pulse Resp BP Pulse Ox 98.5 F 85 20 182/110 98 12/25/16 00:15 12/25/16 00:15 12/25/16 06:54 12/25/16 00:15 12/25/16 00:15 Temperature -Last 24 Hours Temperature 98.5 F Temperature 99.0 F Temperature 98.3 F - Labs CBC & Chem 7: 12/21/16 06:05 12/21/16 06:05
[2016-12-25] MEDS: LOVENOX SUB-Q SCH (09:49)
[2016-12-25] MEDS: PROTONIX PO SCH (09:50)
[2016-12-25] MEDS ORDERED: AUGMENTIN 875 MG PO SCH (10:00)
[2016-12-25] MEDS ORDERED: BACTRIM DS PO SCH (10:00)
--- NOTE | 2016-12-25 10:17 | Discharge Summary ---
Providers - Providers Date of Admission: 12/17/16 20:40 Date of discharge: 12/25/16 Attending physician: CARLOS GERMAIN 12/20/16 06:53 Consult to Physician [CONS] Routine Consulting Provider: ADRIEL MORSE Reason For Exam: meningitis Place consult to:: dr. morse Notified:: answering machine Phone number called:: [phone] Was contact made?: No Time called:: 10:57 12/20/16 07:18 Consult to Physician [CONS] Routine Consulting Provider: ALMA FELDER Reason For Exam: meningitis Place consult to:: dr. felder Notified:: office Phone number called:: [phone] Was contact made?: Yes If yes, spoke with:: [email or web address] Time called:: 10:58 Comment:: will page him stat 12/23/16 10:47 Occupational Therapy Evaluate and Treat [CONS] Routine Comment: Reason For Exam: debility Physical Therapy Evaluation and Treat [CONS] Routine Comment: Reason For Exam: debility Primary care physician: SCARFER OPERATOR Hospitalization Condition: Serious Hospital course: 31 YO F recent delivery approx 3 weeks ago who p/w headache that gradually began on 12/14. Sx have been constant waxing and waning but worsening since onset. There were no clear aggravating, relieving, or temporal factors. Severity is such to cause photophobia w/ assoc neck pain/stiffness causing difficultly sleeping. LP in ED suggestive of meningitis. Patient initially received antibiotics that was started by infectious disease in consultation. CT of the head negative. CSF revealed WBC 205 with 93% lymphocytes, glucose 49 and protein 69.? Viral versus bacterial meningitis. EEG normal. MRI brain report of restricted diffusion splenium with unclear clinical significance, likely asymptomatia ischemia vs. demyelination secondary to meningitis. MRI Brain + Pete w/o enhancement neg. HSV 1/2 PCRs neg. It was felt that the patient CSF fluids were consistent with NSAIDs use rather than meningitis. Other consultations none hospital stay included hypertension which may be related. Patient was started on labetalol. Patient had blood pressure stabilized. Patient was felt to have received maximal hospital benefit and will be discharged home. The discharge time 35 minutes. Disposition: DISCHARGED TO HOME OR SELFCARE - Discharge Diagnoses (1) HTN (hypertension) Status: Acute Qualifiers: Hypertension type: H (2) Acute headache Status: Acute Qualifiers: Headache type: H Intractability: I (3) Meningitis Status: Acute Core Measure Documentation - Palliative Care Palliative Care/ Comfort Measures: Not Applicable - Core Measures Any of the following diagnoses?: none Exam - Constitutional Vitals: Temp Pulse Resp BP Pulse Ox 99.5 F 97 H 20 149/86 98 12/25/16 08:15 12/25/16 08:15 12/25/16 08:15 12/25/16 08:15 12/25/16 08:15 General appearance: Present: no acute distress, well-nourished - EENT Eyes: Present: PERRL ENT: hearing intact, clear oral mucosa - Neck Neck: Present: supple, normal ROM - Respiratory Respiratory effort: normal Respiratory: bilateral: CTA - Cardiovascular Heart Sounds: Present: S1 & S2. Absent: rub, click - Extremities Extremities: pulses symmetrical, No edema Peripheral Pulses: within normal limits - Abdominal General gastrointestinal: Present: soft, non-tender, non-distended, normal bowel sounds Female genitourinary: Present: normal - Integumentary Integumentary: Present: clear, warm, dry - Musculoskeletal Musculoskeletal: gait normal, strength equal bilaterally - Psychiatric Psychiatric: appropriate mood/affect, intact judgment & insight - Neurologic Neurologic: CNII-XII intact, moves all extremities Plan Activity: no restrictions Weight Bearing Status: Full Weight Bearing Diet: regular Follow up with: PRIMARY CAREMD [Primary Care Provider] - 3-5 Days ALMA FELDER MD [Staff Physician] - 7 Days Prescriptions: Amoxicillin/K Clav Tab [Augmentin 875MG TAB] 1 each PO Q12HR #20 tablet Labetalol [Normodyne TAB] 300 mg PO TID #90 tablet oxyCODONE /ACETAMINOPHEN [Percocet 5/325 mg] 1 tab PO Q4H PRN #15 tablet PRN Reason: Pain, Moderate (4-6) Sulfamethoxazole/Trimethoprim [Bactrim DS TAB] 1 each PO Q12HR #20 tablet
[2016-12-25 12:08] VITALS: BP 159/109
[2016-12-25] MEDS ORDERED: NORMODYNE PO SCH (14:00)
== END 2016-12-25 14:30 | disposition home or self-care (01) | DRG 871 ==
LOC: ED 11:55 → 3A 20:40
PROVIDERS: ADMIT Internal Medicine; ATTEND Hospitalist
DX: A41.9 Sepsis, unspecified organism (principal); G03.9 Meningitis, unspecified; H53.149 Visual discomfort, unspecified; I10 Essential (primary) hypertension; I99.8 Other disorder of circulatory system
CPT/HCPCS: 36415; 70450; 70551; 70552; 71010; 80048; 80053; 80202; 81001; 82024; 82140; 82805; 82947; 82962; 84160; 85025; 85610; 87040; 87086; 87116; 87529; 87806; 89051; 94640; 94760; 95819; 96361; 96374; 96375; A9577; J0133; J0696; J1170; J1650; J1885; J2060; J2405; J3010; J3370; J7030; J7040; J7050